=== PATIENT | male | born 1950 | race Two or more races ===

== ENCOUNTER 2022-10-19 08:18 | Outpatient (OUT) | payer MEDICARE, MEDICAID, SELFPAY ==
[2022-10-19 09:02] LABS: Basophils Percent Auto 0.2 % (0.2-2.0); Eosinophils Absolute Auto 0.1 10^3/uL (0.0-0.7); Eosinophils Percent Auto 1.5 % (0.9-7.0); Hematocrit 42.4 % (42.0-54.0); Hemoglobin 14.7 g/dL (14.0-18.0); Immature Granulocytes Abs Auto 0.02 10^3/uL (0.00-0.03); Immature Granulocytes Pct Auto 0.2 % (0.0-0.5); Lymphocytes Absolute Auto 1.8 10^3/uL (1.2-3.8); Lymphocytes Percent Auto 21.5 % (20.5-60.0); Mean Corpuscular HGB Conc 34.7 g/dL (29.9-35.2); Mean Corpuscular Hemoglobin 32.4 pg (25.9-34.0); Mean Corpuscular Volume 93.4 fL (80.0-94.0); Mean Platelet Volume 9.4 fL (9.5-13.5); Monocytes Absolute Auto 0.8 10^3/uL (0.3-0.8); Monocytes Percent Auto 9.2 % (1.7-12.0); Neutrophils Absolute Auto 5.8 10^3/uL (1.4-6.5); Neutrophils Percent Auto 67.4 % (43.0-75.0); Platelet Count 234 10^3/uL (150-450); Red Blood Count 4.54 10^6/uL (4.70-6.10); Red Cell Distribution Width 12.4 % (11.0-15.0); White Blood Count 8.6 10^3/uL (4.0-11.0)
[2022-10-19 10:57] LABS: Alanine Aminotransferase 16 U/L (16-63); Albumin Globulin Ratio 0.9; Albumin Level 3.5 g/dL (3.4-5.0); Alkaline Phosphatase 58 U/L (46-116); Anion Gap 11.1; Aspartate Amino Transferase 8 U/L (15-37); BUN Creatinine Ratio 8.7; Bilirubin Total 0.6 mg/dL (0.2-1.0); Calcium 8.9 mg/dL (8.5-10.1); Carbon Dioxide 28.7 mmol/L (21.0-32.0); Chloride 104 mmol/L (98-107); Chol HDL Ratio 3.3; Cholesterol 201 mg/dL (<=200); Estimated GFR (African America >60 (>=60); Estimated GFR (Non-African Ame >60 (>=60); Globulin 3.7 g/dL; Glucose 137 mg/dL (74-106); HDL Cholesterol 61 mg/dL (40-60); Potassium 3.8 mmol/L (3.5-5.1); Sodium 140 mmol/L (136-145); Total Protein 7.2 g/dL (6.4-8.2); Triglycerides 102 mg/dL (<=150); VLDL CHOLESTEROL 20.4 mg/dL
[2022-10-19 12:19] LABS: Estimated Average Glucose 174 mg/dL; Glycohemoglobin A1C 7.7 % (4.5-6.2)
== END 2022-10-19 08:19 | disposition home or self-care (01) ==
PROVIDERS: PCP Nurse Practitioner Primary Care
DX: E11.9 Type 2 diabetes mellitus without complications (principal)
CPT/HCPCS: 36415; 80053; 80061; 83036; 85025

== ENCOUNTER 2022-11-08 22:43 | Outpatient (REF) | payer MEDICARE, MEDICAID, SELFPAY ==
[2022-11-08 23:03] LABS: Bilirubin Urine NEGATIVE (NEGATIVE); Blood Urine NEGATIVE (NEGATIVE); Clarity Urine CLEAR (CLEAR); Color Urine YELLOW (YELLOW); Glucose Urine UA >=1000 mg/dL (NEGATIVE); Ketones Urine TRACE mg/dL (NEGATIVE); Leukocyte Esterase Urine NEGATIVE (NEGATIVE); Nitrite Urine NEGATIVE (NEGATIVE); Protein Urine NEGATIVE (NEG/TRACE); Specific Gravity Urine 1.025 (1.005-1.025)
[2022-11-08 23:04] LABS: Urine Microscopic Indicated NO
[2022-11-08 23:09] LABS: Creatinine Urine Random 88.06 mg/dL (20.00-300.00); Microalbumin Urine Random <1.3 mg/dL (<=30.0)
== END 2022-11-08 22:44 | disposition home or self-care (01) ==
LOC: LAB 22:43
PROVIDERS: PCP Nurse Practitioner Primary Care; Visit Provider Nurse Practitioner Primary Care
DX: R10.9 Unspecified abdominal pain (principal)
CPT/HCPCS: 81003; 82043; 82570

== ENCOUNTER 2022-11-30 16:42 | Outpatient (OUT) | payer OTHER, MEDICAID, SELFPAY ==
[2022-11-30 18:07] LABS: Prostate Specific Antigen Scrn 2.48 ng/mL (<=4.00)
[2022-12-02 06:18] LABS: HCV Ab Non Reactive (Non Reactive)
[2022-12-02 08:12] LABS: HIV Ab/p24 Ag Screen Non Reactive (Non Reactive)
== END 2022-11-30 16:43 | disposition home or self-care (01) ==
LOC: LAB 16:45
PROVIDERS: PCP Nurse Practitioner Primary Care; Visit Provider Nurse Practitioner Primary Care
DX: Z11.59 Encounter for screening for other viral diseases (principal); Z11.4 Encounter for screening for human immunodeficiency virus [HIV]; Z12.5 Encounter for screening for malignant neoplasm of prostate; Z12.2 Encounter for screening for malignant neoplasm of respiratory organs
CPT/HCPCS: 36415; 86803; 87389; G0103

== ENCOUNTER 2022-12-11 09:22 | Outpatient (OUT) | payer OTHER, SELFPAY ==
--- NOTE | 2022-12-11 | CT_ITS ---
[address] [address] Patient Name: JUVENAL BROWN MRN: [id number] date: 1950 Sex: M Assigned Patient Location: CT Current Patient Location: Accession/Order Number: [id number] Exam Date: 12/11/2022 09:38 Report Date: 12/14/2022 07:14 At the request of: DENISHA KING Procedure: CT lung screening low-dose EXAMINATION: CT lung screening low-dose HISTORY: ENCOUNTER SCREENING FOR MALIGNANT NEOPLASM COMPARISON: No relevant comparison available. TECHNIQUE: Axial, Coronal, and Sagittal images were created without the administration of IV contrast material. Dose reduction techniques were achieved by using automated exposure control and/or adjustment of mA and/or kV according to patient size and/or use of iterative reconstruction technique. FINDINGS: LUNGS: Soft tissue attenuation posterior trachea, retained mucus is favored. A few scattered punctate pulmonary nodules are identified the largest in the left apex measures 3 mm axial image #18. PLEURA: No mass, effusion, or pneumothorax. VASCULATURE: No abnormality. STEPHANI: No mass or pathologic adenopathy. MEDIASTINUM: No mass or pathologic adenopathy. CARDIAC: No enlargement or pericardial effusion. Coronary atherosclerosis. AORTA: No aneurysm or dissection. CHEST WALL: No mass or axillary adenopathy BONES: No bone lesion or fracture. LIMITED ABDOMEN: No suspicious findings. Limited images of the upper abdomen. OTHER: Negative. CT/CT lung screening low-dose IMPRESSION: LUNG SCREENING: Lung-RADS Category 2- Benign Appearance or Behavior. Nodules with a very low likelihood of becoming a clinically active cancer due to size or lack of growth. 2. Continue annual screening with LDCT in 12 months. Electronically authenticated by: BRITT LEVIN Date: 12/14/2022 07:14
== END 2022-12-11 09:23 | disposition home or self-care (01) ==
LOC: CT 09:22
PROVIDERS: PCP Nurse Practitioner Primary Care; Visit Provider Nurse Practitioner Primary Care
DX: Z12.2 Encounter for screening for malignant neoplasm of respiratory organs (principal); R91.8 Other nonspecific abnormal finding of lung field
CPT/HCPCS: 71271

== ENCOUNTER 2023-07-26 13:54 | Outpatient (OUT) | payer OTHER, SELFPAY ==
--- NOTE | 2023-07-26 14:13 | MR_ITS ---
The [address] [address] Patient Name: JUVENAL BROWN MRN: [id number] date: 1950 Sex: M Assigned Patient Location: LAB Current Patient Location: Accession/Order Number: [id number] Exam Date: 07/26/2023 14:40 Report Date: 07/27/2023 09:26 At the request of: TOMY DONALD Procedure: MR head/brain wo/w con MR head/brain wo/w con, 07/26/2023 2:40 PM EDT INDICATION: Asymmetric SNHL H90.3 left-sided tinnitus COMPARISON: There is no appropriate prior study for comparison. TECHNIQUE: Multiplanar, multisequential MRI images of brain were obtained without and with injection of contrast. FINDINGS: This study is limited as the patient aborted early. All the sequences are obtained. The cerebral sulci as well as ventricular system are enlarged consistent with mild ex vacuo cerebral volume loss. There is encephalomalacia within the left temporal lobe likely due to prior trauma or CVA. There is no restricted diffusion. Hyperintensities on T2 and FLAIR images in the constance and wesley radiata and centrum semiovale with sparing of U fibers are nonspecific, statistically most likely consistent with microvascular ischemic changes. There is no intracranial mass, mass effect, midline shift, intra or extra-axial fluid collection or large hemorrhage. No definite abnormality of the cochlea vestibular nerves or semicircular canals is noted. No abnormal enhancing lesion. Normal flow-void in the intracranial vessels is noted. There is a retention cyst within the right maxillary sinus. The visualized portions of orbits, mastoid air cells as well as remainder of paranasal sinuses are unremarkable. MR/MR head/brain wo/w con IMPRESSION: Limited study as the patient aborted early. No acute intracranial process is noted. No definite radiological finding to explain patient's symptoms. Electronically authenticated by: DIANE BLOUNT Date: 07/27/2023 09:26
[2023-07-26 14:18] LABS: Estimated GFR (African America >60 (>=60); Estimated GFR (Non-African Ame >60 (>=60)
--- NOTE | 2023-07-26 16:02 | PC.NURSE ---
07/26/23 1520 Called to MRI with c/o pt feeling dizzy after getting IV Dotarem. Pt asssisted with transfer to w/c. Pt breasthing easy and nonlabored. Pt has broken Kazakh and taken to holding area for son to translate. Son states that the patient was dizzy in the MRI after IV contrast but it has subsided now. BP 127/59 P 75 pulse ox 97% RA. Pt skin pink warm and dry. Pt denies feeling dizzy at all now and feels good to go home. discussed with pt and son the small chance that this could be a weird reaction to MRI contrast but, not an allergic reaction.
== END 2023-07-26 13:55 | disposition home or self-care (01) ==
LOC: LAB 13:55
PROVIDERS: PCP Nurse Practitioner Primary Care; Visit Provider Otolaryngology
DX: H93.12 Tinnitus, left ear (principal); H92.02 Otalgia, left ear; H90.3 Sensorineural hearing loss, bilateral
CPT/HCPCS: 36415; 70553; 82565; A9575

== ENCOUNTER 2023-08-09 15:24 | Outpatient (OUT) | payer OTHER, SELFPAY ==
[2023-08-09 15:45] LABS: Hematocrit 39.6 % (42.0-54.0); Hemoglobin 13.3 g/dL (14.0-18.0); Mean Corpuscular HGB Conc 33.6 g/dL (29.9-35.2); Mean Corpuscular Hemoglobin 31.9 pg (25.9-34.0); Mean Platelet Volume 8.9 fL (9.5-13.5); Platelet Count 237 10^3/uL (150-450); Red Blood Count 4.17 10^6/uL (4.70-6.10); Red Cell Distribution Width 12.6 % (11.0-15.0); White Blood Count 6.8 10^3/uL (4.0-11.0)
[2023-08-09 15:48] LABS: Estimated Average Glucose 160 mg/dL; Glycohemoglobin A1C 7.2 % (4.5-6.2)
[2023-08-09 15:59] LABS: Alanine Aminotransferase 28 U/L (16-63); Albumin Globulin Ratio 1.1; Albumin Level 3.7 g/dL (3.4-5.0); Alkaline Phosphatase 58 U/L (46-116); Anion Gap 10.9; Aspartate Amino Transferase 12 U/L (15-37); BUN Creatinine Ratio 11.9; Bilirubin Total 0.3 mg/dL (0.2-1.0); Calcium 9.6 mg/dL (8.5-10.1); Carbon Dioxide 29.1 mmol/L (21.0-32.0); Chloride 101 mmol/L (98-107); Estimated GFR (African America >60 (>=60); Estimated GFR (Non-African Ame >60 (>=60); Globulin 3.5 g/dL; Glucose 211 mg/dL (74-106); Sodium 137 mmol/L (136-145); Total Protein 7.2 g/dL (6.4-8.2)
== END 2023-08-09 15:25 | disposition home or self-care (01) ==
LOC: LAB 15:25
PROVIDERS: PCP Nurse Practitioner; Visit Provider Nurse Practitioner
DX: R35.0 Frequency of micturition (principal); E11.9 Type 2 diabetes mellitus without complications
CPT/HCPCS: 36415; 80053; 83036; 85027

== ENCOUNTER 2024-09-20 22:39 | Emergency (ER) | payer OTHER, SELFPAY ==
--- OUTSIDE RECORDS SUMMARY | 2024-09-20 22:52 | XMS_ITS | CCD ---
Author Organization [facility] Care Team Providers Care Plant Tender Name Role Phone MARIELOS PENA Attending Unavailable MISC, DR CLANCY Consulting Unavailable MISC, DR CLANCY Attending Unavailable MISC, DR CLANCY Admitting Unavailable REQUEST, NONE LISTED Consulting Unavaila ble REQUEST, NONE LISTED Attending Unavaila ble REQUEST, NONE LISTED Admitting Unavaila ble FELICITA SHOOK Primary Care Physician [phone] CONNOR INIGUEZ Attending Unavailable DENISHA KING Referring Unavailable TIMMISTOMY Attending Unavailable DENISHA KING Referring Unavailable Medications Current Medications Medication Drug Class(es) Dates Sig (Normalized) Sig (Original) finasteride 5 mg oral tablet (1 source) 5-alpha Reductase Inhibitor Start: 06-03-2021 take 1 tablet by mouth once daily finasteride 5 mg Tab 5 mg = 1 tab(s), Oral, Daily, # 30 tab(s), Refills(s) 11, Pharmacy: [facility]/pharmacy #[id number], 174, cm, 06/03/21 11:09:00 EST, Height/Length Dosing, 67.9, kg, 06/03/21 11:09:00 EST, Weight Dosing Start Date: 06/03/21 Status: Ordered hydrOXYzine hydrochloride 50 mg oral tablet (1 source) Antihistamine Start: 06-03-2021 take 1 mg by mouth four times daily hydrOXYzine hydrochloride 50 mg oral tablet mg tab(s), Oral, QID, Refills(s) 0 Start Date: 06/03/21 Status: Ordered lisinopril 2.5 mg oral tablet (1 source) Angiotensin Converting Enzyme Inhibitor Start: 06-03-2021 take 1 mg by mouth once daily lisinopril 2.5 mg Tab mg tab(s), Oral, Daily, Refills(s) 0 Start Date: 06/03/21 Status: Ordered metFORMIN hydrochloride 1000 mg oral tablet (1 source) Biguanide Start: 06-03-2021 take 1 mg by mouth twice daily metformin 1000 mg oral tablet mg tab(s), Oral, BID, Refills(s) 0 Start Date: 06/03/21 Status: Ordered pravastatin sodium 20 mg oral tablet (1 source) HMG-CoA Reductase Inhibitor Start: 06-03-2021 take 1 mg by mouth once daily pravastatin 20 mg Tab mg tab(s), Oral, Daily, Refills(s) 0 Start Date: 06/03/21 Status: Ordered tamsulosin hydrochloride 0.4 mg oral capsule (1 source) alpha-Adrenergic Dorian Start: 06-03-2021 take 1 capsule by mouth twice daily tamsulosin 0.4 mg Cap 0.4 mg = 1 cap(s), Oral, BID, # 60 cap(s), Refills(s) 11, Pharmacy: [facility]/pharmacy #[id number], 174, cm, 06/03/21 11:09:00 EST, Height/Length Dosing, 67.9, kg, 06/03/21 11:09:00 EST, Weight Dosing Start Date: 06/03/21 Status: Ordered traZODone hydrochloride 50 mg oral tablet (1 source) Serotonin Reuptake Inhibitor Start: 06-03-2021 take 1 mg by mouth twice daily traZODONE 50 mg Tab mg tab(s), Oral, BID, Refills(s) 0 Start Date: 06/03/21 Status: Ordered Problems Problem Classification Problem Date Documented Date Episodic/Chronic Acute cerebrovascular disease (1 source) Cerebrovascular accident 06-03-2021 Chronic Diabetes mellitus without complication (1 source) Type 2 diabetes mellitus without complications; Translations: [TYPE 2 DM WITHOUT COMPLICATIONS] Onset: 05-11-2021 Chronic Disorders of lipid metabolism (4 sources) Hyperlipidemia, unspecified; Translations: [HYPERLIPIDEMIA UNSPECIFIED] Onset: 05-07-2021 Chronic Essential hypertension (2 sources) Essential (primary) hypertension; Translations: [Hypertensive disorder] Onset: 05-11-2021 06-03-2021 Chronic Genitourinary symptoms and ill-defined conditions (2 sources) Urge incontinence of urine; Translations: [Urinary incontinence] 06-03-2021 Chronic Genitourinary symptoms and ill-defined conditions (1 source) Incomplete emptying of bladder 06-03-2021 Episodic Hyperplasia of prostate (2 sources) Benign prostatic hyperplasia without lower urinary tract symptoms; Translations: [Benign prostatic hypertrophy with outflow obstruction] Onset: 05-11-2021 06-03-2021 Chronic Results Test Name Value Interpretation Reference Range Facility Provider Letteron 12-02-2021 Provider Letter (Inserted Image. Katja ble to display) December 02, 2021 DEACON MARCIAL [address] [place] [id number] DEACON MARCIAL 1950 Dear Deacon , You missed your scheduled appointment on: December 02, 2021 and the purpose of this letter is to inform you of our *No Show Policy*. Our appointment slots fill rapidly and when we have a no show appointment that time is lost. We could have used that time slot to care for a patient who needed to see one of our providers. Therefore, we ask that you call 24 hours in advance to cancel your appointment. This policy is in place so that we can meet the needs of all of our patients and we do appreciate your understanding. Sincerely, [facility] [address], [place] [address] [facility] Ambulatory Visit Summaryon 0 06-03-2021 Ambulatory Visit Summary DEACON MARCIAL :1950 Visit Date:06/03/2021 Ambulatory Visit Instructions Your Diagnosis BPH with urinary obstruction Incomplete bladder emptying Urge incontinence Other obstructive and reflux uropathy Tests Performed Urnls Dip Stick Auto w/o Microscopy POC 52556 Your Care Team Attending Physician - RITU GREER PA-C Primary Care Physician - FELICITA SHOOK DO Referring Physician - FELICITA SHOOK DO This Is Your Medications List finasteride (finasteride 5 mg Tab) tamsulosin (tamsulosin 0.4 mg Cap) Contact prescribing physician if questions or concerns hydrOXYzine (hydrOXYzine hydrochloride 50 mg oral tablet) lisinopril (lisinopril 2.5 mg Tab) metformin (metformin 1000 mg oral tablet) pravastatin (pravastatin 20 mg Tab) trazodone (traZODONE 50 mg Tab) Discharge Vitals Heart Rate (Peripheral) 74 Respiratory Rate 16 Blood Pressure 122/70 Height 174.0 cm Height 174 cm Weight 67.9 kg Weight 67.9 kg BMI 22.43 What to do next Scheduled Follow-Up Appointments Tuesday 3:00 PM EDT With: PERCY LOPEZ, RITU Parada Where: [facility] Formson 06-03-2021 Forms [id number]: 127 [facility] Patient Educationon 06-03-19 Patient Education Urology Benign Prostatic Hyperplasia Benign prostatic hyperplasia (BPH) is an enlarged prostate gland that is caused by the normal aging process and not by cancer. The prostate is a walnut-sized gland that is involved in the production of semen. It is located in front of the rectum and below the bladder. The bladder stores urine and the urethra is the tube that carries the urine out of the body. The prostate may get bigger as a man gets older. An enlarged prostate can press on the urethra. This can make it harder to pass urine. The build-up of urine in the bladder can cause infection. Back pressure and infection may progress to bladder damage and kidney (renal) failure. What are the causes? This condition is part of a normal aging process. However, not all men develop problems from this condition. If the prostate enlarges away from the urethra, urine flow will not be blocked. If it enlarges toward the urethra and compresses it, there will be problems passing urine. What increases the risk? This condition is more likely to develop in men over the age of 50 years. What are the signs or symptoms? Symptoms of this condition include: ? Getting up often during the night to urinate. ? Needing to urinate frequently during the day. ? Difficulty starting urine flow. ? Decrease in size and strength of your urine stream. ? Leaking (dribbling) after urinating. ? Inability to pass urine. This needs immediate treatment. ? Inability to completely empty your bladder. ? Pain when you pass urine. This is more common if there is also an infection. ? Urinary tract infection (UTI). How is this diagnosed? This condition is diagnosed based on your medical history, a physical exam, and your symptoms. Tests will also be done, such as: ? A post-void bladder scan. This measures any amount of urine that may remain in your bladder after you finish urinating. ? A digital rectal exam. In a rectal exam, your health care provider checks your prostate by putting a lubricated, gloved finger into your rectum to feel the back of your prostate gland. This exam detects the size of your gland and any abnormal lumps or growths. ? An exam of your urine (urinalysis). ? A prostate specific antigen (PSA) screening. This is a blood test used to screen for prostate cancer. ? An ultrasound. This test uses sound waves to electronically produce a picture of your prostate gland. Your health care provider may refer you to a specialist in kidney and prostate diseases (urologist). How is this treated? Once symptoms begin, your health care provider will monitor your condition (active surveillance or watchful waiting). Treatment for this condition will depend on the severity of your condition. Treatment may include: ? Observation and yearly exams. This may be the only treatment needed if your condition and symptoms are mild. ? Medicines to relieve your symptoms, including: ? Medicines to shrink the prostate. ? Medicines to relax the muscle of the prostate. ? Surgery in severe cases. Surgery may include: ? Prostatectomy. In this procedure, the prostate tissue is removed completely through an open incision or with a laparoscope or robotics. ? Transurethral resection of the prostate (TURP). In this procedure, a tool is inserted through the opening at the tip of the penis (urethra). It is used to cut away tissue of the inner core of the prostate. The pieces are removed through the same opening of the penis. This removes the blockage. ? Transurethral incision (TUIP). In this procedure, small cuts are made in the prostate. This lessens the prostate's pressure on the urethra. ? Transurethral microwave thermotherapy (TUMT). This procedure uses microwaves to create heat. The heat destroys and removes a small amount of prostate tissue. ? Transurethral needle ablation (TUNA). This procedure uses radio frequencies to destroy and remove a small amount of prostate tissue. ? Interstitial laser coagulation (ILC). This procedure uses a laser to destroy and remove a small amount of prostate tissue. ? Transurethral electrovaporization (TUVP). This procedure uses electrodes to destroy and remove a small amount of prostate tissue. ? Prostatic urethral lift. This procedure inserts an implant to push the lobes of the prostate away from the urethra. Follow these instructions at home: ? Take [id number] and prescription medicines only as told by your health care provider. ? Monitor your symptoms for any changes. Contact your health care provider with any changes. ? Avoid drinking large amounts of liquid before going to bed or out in public. ? Avoid or reduce how much caffeine or alcohol you drink. ? Give yourself time when you urinate. ? Keep all follow-up visits as told by your health care provider. This is important. Contact a health care provider if: ? You have unexplained back pain. ? Your symptoms do not get better with treatment. ? You d (more content not included)... Normal [facility] Urology Office/Clinic Noteon 06-03-2021 Urology Office/Clinic Note Chief Complaint referred for urinary incontience. HPI Staff Deacon is a 71 year old male here today referred for urinary incontinence. Granddaughter in the room also his plant control aide her name is Brenda . Pt states when he leans his head down he gets pain/cramping in his upper arms. PVR was 200ml. Dysuria: _Denies Incomplete bladder emptying: _Yes Hematuria: _Denies visible blood Frequency: _Every 2 hours Urgency: _Denies Nocturia: _3 times a night due to the urge Stream: _steady stream Leaking: _Denies Post void dripping: _Denies Wearing pads/ Depends: _Yes just incase but it never gets wet. Urge incontinence: _Denies Stress incontinence: _Denies Incontinence without Sensory Awareness: _Denies Abdominal pain: _Denies Flank pain: _Denies Sexual complaints: _ History of Present Illness Pt is here for Referral by Dr. Felicita Shook due to BPH Pt is having Mild Urinary sx: Nocturia, Urge Incontinence and Incomplete Bladder Emptying Review of Systems PHQ Score Initial Depression Screen Score: 0 ROS - Provider no fever, chills, malaise, myalgia. no rash/lesions. no chest pain, palpitations, or SOB. no abdominal pain, nausea, vomiting. no unilateral calf swelling, redness, pain Physical Exam Vitals & Measurements HR: 74(Peripheral) RR: 16 BP: 122/70 HT: 174.0 cm HT: 174 cm WT: 67.9 kg WT: 67.9 kg BMI: 22.43 General: nontoxic, NAD Mouth: moist mucosa Lungs: normal respiratory effort Cardio: regular rate, good distal perfusion Abdomen: nondistended, no suprapubic distention or tenderness, no CVA tenderness Neurologic: Grossly normal Skin: No rashes or suspicious lesions Assessment/Plan 1. BPH with urinary obstruction (N40.1: Benign prostatic hyperplasia with lower urinary tract symptoms) Pt currently in taking Tamsulosin 0.4mg qd Pt states that since starting Tamsulosin about a year ago that some of his symptoms have improved Pt advised that there are options for some additional improvements: increasing Tamsulosin to BID, adding an additional prostate medication or minimally invasive procedure on prostate. Pt prefers to maximize medical therapy before discussing any procedures. Will add Finasteride 5mg qd and increase Tamsulosin 0.4mg to BID. 2. Incomplete bladder emptying (R33.9: Retention of urine, unspecified) Pt's PVR today in office is 200cc. I believe the meds will help improve this. will monitor. 3. Urge incontinence (N39.41: Urge incontinence) Mild, ongoing Pt wear a pad for protection but it is never wet. f/u 6 mos. if not satisfied with max medical therapy and/or PVR remains elevated then we will discuss cysto and rezum vs urolift vs TURP. Follow-up With When Contact Information RITU GREER PA-C, LOUIE In 6 months 12/01/2021 EDT [address] [place] [address] Additional Instructions: Patient Education Benign Prostatic Hyperplasia China Montiel, personally scribed for Ritu Greer PA-C on 06/03/2021 11:42:57. . Documentation recorded by the scribson Whitt accurately reflects the services(s) I performed and decisions made by me. Authenticated by Ritu Greer PA-C on 06/03/2021 12:09:59. Problem List/Past Medical History Ongoing BPH with urinary obstruction High blood pressure Incomplete bladder emptying Stroke Urge incontinence Urinary incontinence Historical No qualifying data Medications hydrOXYzine hydrochloride 50 mg oral tablet, Oral, QID lisinopril 2.5 mg Tab, Oral, Daily metformin 1000 mg oral tablet, Oral, BID pravastatin 20 mg Tab, Oral, Daily tamsulosin 0.4 mg Cap, Oral, Daily traZODONE 50 mg Tab, Oral, BID Allergies No Known Medication Allergies Social History Tobacco 4 or less cigarettes(less than 1/4 pack)/day in last 30 days Tobacco Use:. Never Smokeless Tobacco Use:. Cigarettes, 06/03/2021 Family History Alcoholism: Uncle. Drug addiction: Uncle. High blood pressure: Father. Psychiatric disorder: Aunt. Immunizations Vaccine Date Status SARS-CoV-2 (COVID-19) Ad26 vaccine 03/23/2021 Recorded SARS-CoV-2 (COVID-19) Ad26 vaccine 07/15/2020 Recorded SARS-CoV-2 (COVID-19) Ad26 vaccine 06/23/2020 Recorded Lab Results Ambulatory Point of Care Results Bilirubin Urine Dipstick: Negative (06/03/21 10:55:00) Blood Urine Dipstick: Negative (06/03/21 10:55:00) Glucose Urine Dipstick: 1+ 250 mg/dl (06/03/21 10:55:00) Ketones Urine Dipstick: 1+ 15 mg/dl (06/03/21 10:55:00) Leukocytes Urine Dipstick: Negative (06/03/21 10:55:00) Nitrite Urine Dipstick: Negative (06/03/21 10:55:00) Protein Urine Dipstick: Negative (06/03/21 10:55:00) Specific [place] Urine Dipstick: 1.020 (06/03/21 10:55:00) Urine Appearance Urine Dipstick: Clear (06/03/21 10:55:00) Urine Color Urine Dipstick: Yellow (06/03/21 10:55:00) Urobilinogen Urine Dipstick: Normal 0.2-1 EU/dl (06/03/21 10:55:00) pH Urine Dipstick: 6.5 (06/03/21 1 (more content not included)... Normal [facility] Comment on above: Result Comment: Elec tronically Signed By: RITU GREER PA-C\.br\Date and Time Signed: 06/03/21 12:10 EST\.br\Electronically Co-Signed By: China Whitt\.br\Date and Time Co-Signed: 06/03/21 11:43 EST GLYCOHEMOGLOBIN A1Con 2021 ADA RECOMMENDATION ADA THERAPEUTIC TARG ET 6.0 - 7.0 ACTION SUGGESTED > 7.0 Normal [facility] Comment on above: Performed By: #### A 1C #### [facility] [address] [place] [address] Dr. Yulisa Chappell Glucose [Mass/Vol] 157 mg/dL Normal [facility] Comment on above: Performed By: #### A 1C #### [facility] [address] [place] [address] Dr. Yulisa Chappell HbA1c (Bld) [Mass fraction] 7.1 % Critically high <=6.0 [facility] Comment on above: Performed By: #### A 1C #### [facility] [address] [place] [address] Dr. Yulisa Chappell LIPID PROFILEon 05-07-2021 CHOL-HDL RATIO NORM SEE BELOW Normal [facility] Comment on above: Result Comment: 3.3 - 4.4 LOW RISK 4.4 - 7.1 AVERAGE RISK 7.1 - 11.0 MODERATE RISK >11.0 HIGH RISK Performed By: #### C MP, LIPID #### [facility] [address] [address] [address] Yulisa Chappell Cholesterol [Mass/Vol] 150 mg/dL Normal <=200 [facility] Comment on above: Performed By: #### C MP, LIPID #### [facility] [address] [address] [address] Yulisa Chappell Cholesterol in HDL [Mass/Vol] 59 mg/dL Normal [facility] Comment on above: Performed By: #### C MP, LIPID #### [facility] [address] [address] [address] Yulisa Chappell Cholesterol in LDL [Mass/Vol] 75.0 mg/dL Normal [facility] Comment on above: Performed By: #### C MP, LIPID #### [facility] [address] [address] [address] Yulisa Chappell Cholesterol.total/Ch olesterol in HDL [Mass ratio] 2.5 {ratio} Normal [facility] Comment on above: Performed By: #### C MP, LIPID #### [facility] [address] [address] [address] Yulisa Chappell HDL NORMAL > or = 60 mg/dl - LO W CARDIOVASCULAR RISK <40 mg/dl - HIGH CARDIOVASCULAR RISK Normal [facility] Comment on above: Performed By: #### C MP, LIPID #### [facility] [address] [place] [address] Dr. Yulisa Chappell LDL CALC NORMAL SEE BELOW Normal [facility] Comment on above: Result Comment: <100 mg/dl OPTIMAL 100 - 129 mg/dl NEAR OR ABOVE OPTIMAL 130 - 159 mg/dl BORDERLINE HIGH 160 - 189 mg/dl HIGH >190 mg/dl VERY HIGH Performed By: #### C MP, LIPID #### [facility] [address] [address] [address] Yulisa Chappell Triglyceride [Mass/Vol] 80 mg/dL Normal <=150 [facility] Comment on above: Performed By: #### C MP, LIPID #### [facility] [address] [place] [address] Dr. Yulisa Chappell VLDL CALC 16.0 mg/dL Normal [facility] Comment on above: Performed By: #### C MP, LIPID #### [facility] [address] [address] [address] Yulisa Chappell PROF 14(COMP METB)on 022 Albumin [Mass/Vol] 3.5 g/dL Normal 3.5-5.0 [facility] Comment on above: Performed By: #### C MP, LIPID #### [facility] [address] [place] [address] Dr. Yulisa Chappell Albumin/Globulin [Mass ratio] 1.1 {ratio} Normal [facility] Comment on above: Performed By: #### C MP, LIPID #### [facility] [address] [address] [address] Yulisa Chappell ALP [Catalytic activity/Vol] 56 U/L Normal 38-126 [facility] Comment on above: Performed By: #### C MP, LIPID #### [facility] [address] [address] [address] Yulisa Chappell ALT [Catalytic activity/Vol] 18 U/L Critically low 21-72 [facility] Comment on above: Performed By: #### C MP, LIPID #### [facility] [address] [address] [address] Yulisa Chappell Anion gap [Moles/Vol] 10.2 mmol/L Normal [facility] Comment on above: Performed By: #### C MP, LIPID #### [facility] [address] [address] [address] Yulisa Chappell AST [Catalytic activity/Vol] 12 U/L Critically low 17-59 [facility] Comment on above: Performed By: #### C MP, LIPID #### [facility] [address] [address] [address] Yulisa Chappell Bilirubin [Mass/Vol] 0.4 mg/dL Normal 0.2-1.3 [facility] Comment on above: Performed By: #### C MP, LIPID #### [facility] [address] [address] [address] Yulisa Chappell Calcium [Mass/Vol] 9.0 mg/dL Normal 8.4-10.2 [facility] Comment on above: Performed By: #### C MP, LIPID #### [facility] [address] [address] [address] Yulisa Chappell Chloride [Moles/Vol] 103 mmol/L Normal 98-107 [facility] Comment on above: Performed By: #### C MP, LIPID #### [facility] [address] [address] [address] Yulisa Chappell CO2 [Moles/Vol] 30.0 mmol/L Normal 22.0-30.0 [facility] Comment on above: Performed By: #### C MP, LIPID #### [facility] [address] [address] [address] Yulisa Chappell Creatinine [Mass/Vol] 0.68 mg/dL Normal 0.66-1.25 [facility] Comment on above: Performed By: #### C MP, LIPID #### [facility] [address] [address] [address] Yulisa Chappell EGFR-AF HUNGARIAN >60 Normal >=60 [facility] Comment on above: Performed By: #### C MP, LIPID #### [facility] [address] [address] [address] Yulisa Chappell EGFR-NON AF HUNGARIAN >60 Normal >=60 [facility] Comment on above: Performed By: #### C MP, LIPID #### [facility] [address] [place] [address] Dr. Yulisa Chappell Globulin (S) [Mass/Vol] 3.3 g/dL Normal [facility] Comment on above: Performed By: #### C MP, LIPID #### [facility] [address] [address] [address] Yulisa Chappell Glucose [Mass/Vol] 87 mg/dL Normal 74-106 [facility] Comment on above: Performed By: #### C MP, LIPID #### [facility] [address] [address] [address] Yulisa Chappell Potassium [Moles/Vol] 4.2 mmol/L Normal 3.4-5.0 [facility] Comment on above: Performed By: #### C MP, LIPID #### [facility] [address] [address] [address] Yulisa Chappell Protein [Mass/Vol] 6.8 g/dL Normal 6.1-8.2 [facility] Comment on above: Performed By: #### C MP, LIPID #### [facility] [address] [address] [address] Yulisa Chappell Sodium [Moles/Vol] 139 mmol/L Normal 137-145 [facility] Comment on above: Performed By: #### C MP, LIPID #### [facility] [address] [place], [place] [address] Dr. Yulisa Chappell Urea nitrogen [Mass/Vol] 10.0 mg/dL Normal 9.0-20.0 [facility] Comment on above: Performed By: #### C MP, LIPID #### [facility] [address] [address] [address] Yulisa Chappell Urea nitrogen/Creatinine [Mass ratio] 14.7 mg/mg Normal [facility] Comment on above: Performed By: #### C MP, LIPID #### [facility] [address] [address] [address] Yulisa Chappell Encounters Encounter Date Encounter Type Care Provider Facility Start: 07-12-2023 End: 07-12-2023 ambulatory TOMY COLLINSVicki Not Available Start: 06-11-2023 End: 06-11-2023 ambulatory CONNOR INIGUEZ Not Available Start: 12-02-2021 End: 12-02-2021 Patient encounter procedure RITU GREER [facility] Start: 05-07-2021 End: 05-08-[address] DOCTOR MONTANEZ Facility: Start: 06-23-2020 End: 06-24-[address] PEREIRA LISTED REQUEST Facility: Start: 09-09-2018 End: 09-09-2018 Emergency department patient visit MARIELOS PENA [facility] Procedures Date Procedure Procedure Detail Performing Clinician Start: 05-07-[address] DOCTOR MONTANEZ Comment on above: Performed By: #### P SAD #### [facility] [address] [address] [address] Yulisa Chappell Start: 09-09-2018 Ecg routine ecg w/le ast 12 lds w/i&r MARIELOS PENA Immunizations Immunization Date Immunization Notes Care Provider Fa cility 03-23-2021 SARS-CoV-2 (COVID-19 ) Ad26 vaccine, recombinant RITU GREER [facility] 07-15-2020 SARS-CoV-2 (COVID-19 ) Ad26 vaccine, recombinant RITU GREER [facility] 06-23-2020 SARS-CoV-2 (COVID-19 ) Ad26 vaccine, recombinant RITU GREER [facility] Payers Date Payer Category Payer Unknown [id number] 2017 Unknown [id number] 1957 Medicaid [id number] 1957 Self-pay 1950 Unknown [id number] 1950 Unknown [id number] 2.16.84 [id number] 1950 Unknown [id number] 2.16.84 [id number] Unknown [id number] 2.16.84 [id number] Social History Date Type Detail Facility Start: 06-03-2021 Tobacco smoking status Light t obacco smoker (finding) [facility] Tobacco smoking status Never [facility] Sex Assigned At Male [facility] Evaluation + Plan note Note Date & Type Note Facility Evaluation + Plan note No data available for this section [facility] Hospital Discharge instructions Note Date & Type Note Facility Hospital Discharge instructions No data available for this section [facility] Progress note Note Date & Type Note Facility Progress note No data available for this section [facility] Summary Purpose Family History No Family History Records FoundNo Family History Records FoundNo Family History Records FoundNo Family History Records Found Advance Directives No Advanced Directives Records FoundNo Advanced Directives Records FoundNo Advanced Directives Records FoundNo Advanced Directives Records Found Additional Source Comments (unrecognized sect ion and content) No Status Records FoundNo Status Records FoundNo Status Records FoundNo Status Records Found INFORMATION SOURCE (unrecogn ized section and content) DATE CREATED AUTHOR 09/13/2018 [facility] DATE CREATED AUTHOR AUTHOR'S ORGANIZ ATION 05/12/2021 [facility] DATE CREATED AUTHOR AUTHOR'S ORGANIZ ATION 12/04/2021 [place] [facility] DATE CREATED AUTHOR AUTHOR'S ORGANIZ ATION 07/13/2023 [facility] EPIC Care Team (unrecognized sect ion and content) Personnel Name: FELICITA SHOOK DO Address: [address] [place] [address] FAX# [phone] [place], [place] [address] FOR RECORDS PERTAINING TO PATIENTS WHO ARE OR HAVE BEEN ENROLLED IN A CHEMICAL DEPENDENCY/SUBSTANCEABUSE PROGRAM, SOME INFORMATION MAY BE OMITTED. This clinical summary was aggregated from multiple sources. Caution should be exercised in using it in the provision of clinical care. This summary normalizes information from multiple sources, and as a consequence, information in this document may materially change the coding, format and clinical context of patient data. In addition, data may be omitted in some cases. CLINICAL DECISIONS SHOULD BE BASED ON THE PRIMARY CLINICAL RECORDS. [facility] provides no warranty or guarantee of the accuracy or completeness of information in this document.
[2024-09-20 23:08] VITALS: BP 131/72; PULSE 70; TEMP 36.7; O2SAT 100; BMI 24.1
[2024-09-20] MEDS: NEOMYCIN/POLYMYXIN B/HYDROCORTISONE OTIC SOLUTION 200 DROP/10 ML BOTTLE OT (23:45)
--- NOTE | 2024-09-21 01:23 | ED.EAR1 ---
HPI - Ear Problem General Chief complaint: Ear Stated complaint: HEARING A LOUD NOISE IN HIS EARS Time Seen by Provider: 09/20/24 22:52 Source: patient and family Limitations: language barrier Limitations comment: daughter translates--Swedish speaking History of Present Illness HPI Narrative: This 74-year-old male who has had several strokes in the past and a history of tinnitus who has been seen in the past by ENT for this and had an MRI on 07/26/2023 that did not show any acute findings presents for evaluation of ringing in both ears. The patient's daughter states that he asked to be brought to the emergency department for treatment of the ringing in his ears. He denies any ear pain. He is being seen by a local ENT for hearing aids but has been told that he needs to have hearing implants. The patient states this is because he is a diabetic. He has not had any change in his neurologic status including any slurred speech, confusion, weakness or numbness. He has not had any drainage from his ears. He has not had a fever. He has no neck pain or stiffness. Related Data Home Medications ?Medication ?Instructions ?Recorded ?Confirmed lisinopril 2.5 mg tablet mg 09/20/24 metformin 1,000 mg tablet mg 09/20/24 Allergies Allergy/AdvReac Type Severity Reaction Status Date / Time No Known Drug Allergies Allergy Verified 09/20/24 23:16 Review of Systems ROS Status of ROS 10 or more systems reviewed and unremarkable except as noted in history and below PFSH PFSH Social History Little interest or pleasure in doing things: not at all Feeling down, depressed, or hopeless: not at all Exam Narrative Exam Narrative: Vital signs and Nursing Notes reviewed: Patient is afebrile with a normal pulse, normal blood pressure, he is not hypoxic with pulse ox of 100% on room air General: Awake, alert, oriented, elderly male, he is well-appearing and conversant, no distress noted HEENT: Normocephalic atraumatic, mucous membranes are moist and pink, eyes are clear, normal conjunctiva, vision is grossly intact, posterior pharynx is normal in appearance. Tympanic membranes are normal bilaterally without effusion, erythema, cerumen or other notable abnormality. Patient is very hard of hearing. Neck: Supple, no meningeal signs, no anterior or posterior cervical lymphadenopathy Chest: Lungs are clear to auscultation with good air entry, there is no wheezing rhonchi or rales appreciated no accessory muscle use, patient is speaking in complete sentences-no chest wall tenderness to palpation CVS: Regular rate and rhythm S1-S2, no murmurs rubs or gallops, pulses are brisk and equal bilaterally ABD: Soft, nondistended, nontender, no rebound guarding or rigidity, bowel sounds are normal, no pulsatile masses appreciated Extremities: Moving all extremities, no lower extremity tenderness or swelling noted Skin: Normal in appearance without rash,pallor, petechiae or purpura Neuro: No focal deficits; speech is clear, police justice strength is intact, there is no facial droop, upper and lower extremity strength and sensation is intact. Constitutional Vital Signs, click to edit/add: Last Vital Signs Temp 98.1 F 09/20/24 23:08 Pulse 70 09/20/24 23:08 Resp 14 09/20/24 23:08 BP 131/72 09/20/24 23:08 Pulse Ox 100 09/20/24 23:08 O2 Del Method Room Air 09/20/24 23:08 Course Vital Signs Vital signs: Vital Signs Temperature 98.1 F 09/20/24 23:08 Pulse Rate 70 09/20/24 23:08 Respiratory Rate 14 09/20/24 23:08 Blood Pressure 131/72 09/20/24 23:08 Pulse Oximetry 100 09/20/24 23:08 Oxygen Delivery Method Room Air 09/20/24 23:08 Temperature 98.1 F 09/20/24 23:08 Pulse Rate 70 09/20/24 23:08 Respiratory Rate 14 09/20/24 23:08 Blood Pressure 131/72 09/20/24 23:08 Pulse Oximetry 100 09/20/24 23:08 Oxygen Delivery Method Room Air 09/20/24 23:08 Medical Decision Making MDM Narrative Medical decision making narrative: This 74-year-old male is brought to the emergency department by his daughter for evaluation of tinnitus. This is an ongoing and remitting problem for him. He has been seen in the past by Dr. Lock and had an MRI dated 07/26/2023 that did not show any acute intracranial process however the limited study was limited by the patient ending of the exam before its completion. He has not had any drainage from his ears. He does not have any ear pain or nasal congestion. There are no foreign bodies or cerumen in the ear canals. I do not appreciate any effusions or other notable abnormality. The patient is markedly hard of hearing and is being evaluated by an interactive developer. The patient's daughter states the interactive developer has told them that he requires implants because he is diabetic. The patient presents with tinnitus. I explained to the patient's daughter that I do not have any specific treatment for this. She verbalizes understanding of that. I offered to provide the patient with some eardrops that may give him some relief or ease his anxiety about the tinnitus. She is in agreement with this plan. They will follow-up with their family doctor for further evaluation and treatment. Discharge Plan Discharge Chief Complaint: Ear Clinical Impression: Bilateral tinnitus Patient Disposition: Home, Self-Care Time of Disposition Decision: 23:33 Condition: Good Prescriptions / Home Meds: No Action metformin 1,000 mg tablet lisinopril 2.5 mg tablet Print Language: Swedish Instructions: Tinnitus (ED) Referrals: Vidhya Avery MD [Physician, Ear, Nose, Throat] - 1 week Alejandra Oropeza NP [Physician] - 1 week Discharge Date/Time: 09/20/24 23:51
== END 2024-09-20 23:51 | disposition home or self-care (01) ==
PROVIDERS: Emergency Provider Emergency Medicine
DX: H93.13 Tinnitus, bilateral (principal); Z86.73 Personal history of transient ischemic attack (TIA), and cerebral infarction without residual deficits; E11.9 Type 2 diabetes mellitus without complications; Z79.84 Long term (current) use of oral hypoglycemic drugs
CPT/HCPCS: 99282

== ENCOUNTER 2024-11-16 08:34 | Outpatient (OUT) | payer OTHER, SELFPAY ==
--- OUTSIDE RECORDS SUMMARY | 2024-11-05 04:30 | XMS_ITS ---
Author Organization [facility] Address [address] [place], [place] [id number] Care Team Providers Care Circuit Rider Name Role Phone Flavio Chen Unavailable [phone] REASON FOR VISIT DM/HTN Social History Sex Assigned At : Social History Observation Description Sex Assigned At Male Encounters Encounter Location Date Provider Diagnosis Third [address] [facility] [place] [address] [place] [address] 11/05/2024 Chen Muniz Plan Of Treatment Next Appt Details Provider Name:Abel Leigh, 02/15/2025 09:30:00 AM, [address], [place], [id number], Progress Notes * STEPHANIA BROWN CDOB:11/1950 (74 yo M)Acc No.[id number]:11/05/2024 Medical Note Patient: Ricky BANGURA Bernard BROWN Provider: Fely Muniz MD :1950 A ge:74 Y S ex:Male Date:11/05/2024 Address:[address] [place] [id number] Subjective: * Chief Complaints: * 1 . DM/HTN. * Medical History: Objective: * Vitals: Assessment: Plan: * Treatment: * Billing Information: * Visit Code: * Procedure Codes: * Electronic signature of Nolberto Muniz MD on 11/16/2024 at 08:37 AM EDT Sign off status: Pending * Provider: Fely Muniz MD Date: 0 11/05/2024 Generated for Pb edge/Bryant/Pawanitting on: 0 11/16/2024 08:37 AM EDT
--- OUTSIDE RECORDS SUMMARY | 2024-11-09 05:30 | XMS_ITS ---
Author Organization [facility] Address [address] [place] [address] Y[place]I [place], [place] [id number] Care Team Providers Care Bacon Skinner Name Role Phone Chen Muniz Unavailable [phone] Allergies No Known Allergies Results Component Value Reference Range Notes POCT A1C Reviewed date:11/09/2024 10:05:44 AM Interpretation: Performing Lab: Notes/Report: Result 8.5 0-5.6 % Reason For Referral Reason DM foot eval Diagnosis 1 Type 2 diabetes genna itus (E11.9) Referral Organization Third Referring Provider First Name Chen Referring Provider Last Name Flavio Referring Provider Speciality Family Med opal Referred Provider Ramandeep Gonzalez Referred Provider Specialty Podiatry Referral Priority Routine REASON FOR VISIT DM and HTN Medications Medication SIG (Take, Route, Frequency, Duration) Notes Start Date End Date Status Diapers & Supplies - as directed as directed 7 times a day 05/01/2021 Not-Taking Bed Size Underpads as directed as directed once a day 05/01/2021 Not-Taking Misc. Devices - 30 x36 Bed mcallister prn 05/22/2021 Not-Taking Glucometer twice daily 10/29/2022 Not-Ta pari Amantadine HCl 100 MG 1 capsule Orally Once a day Not-Taking Trulicity 0.75 MG/0.5ML inject 0.75mg Subcutaneous once a week; Duration: 30 days 10/05/2024 Not-Taking Finasteride 5 MG TOME UMU TABLETA TODOS LOS AGUSTIN FOR 30 DAYS; Duration: 30 Not-Taking Fluticasone Propionate 50 MCG/ACT SPRAY 1 SPRAY EN CADA VENTANILLA DE LA NARIZ TODOS LOS AGUSTIN FOR 30 DAYS; Duration: 30 Not-Taking Naproxen 500 MG 1 tablet with food or milk as needed Orally every 12 hrs; Duration: 30 days please give instructions in romansh Not-Taking Latex Gloves Large - as directed as directed twice a day 05/01/2021 Not-Taking traZODone HCl 100 MG 1 tablet at bedtime Orally Once a day; Duration: 30 days 11/09/2024 Active Blood Glucose Test - 1 (one) In Vitro twice a day; Duration: 90 days whatever brand is covered by insurance needs refills please 03/21/2019 Active traZODone HCl 50 MG 1 tablet at bedtime as needed Orally at bedtime; Duration: 90 days As needed Active Tamsulosin HCl 0.4 MG 1 capsule Orally Once a day; Duration: 90 days 11/10/2020 Active Pravastatin Sodium 20 MG TOME UMU TABLETA TODOS LOS AGUSTIN FOR 30 DAYS Orally daily; Duration: 90 days Active buPROPion HCl ER (Smoking Det) 150 MG 1 TABLET Orally twice a day, AM, 5 PM; Duration: 90 days Not-Taking Lisinopril 2.5 MG TOME UMU TABLETA TODOS LOS AGUSTIN FOR 30 DAYS Orally Once a day; Duration: 90 days Active Tamsulosin HCl 0.4 MG 1 capsule Orally Once a day; Duration: 30 days 11/09/2024 Active metFORMIN HCl 1000 MG 1 tablet with a meal Orally Twice a day; Duration: 90 days Active Jardiance 10 MG 1 tablet Orally Once a day; Duration: 30 days 11/09/2024 Active Social History Sex Assigned At : Social History Observation Description Sex Assigned At Male Vital Signs Temperature 98.4 degrees Fahrenheit 11/10/19 25 Weight 120.4 lbs 11/09/2024 Height 68.00 in 11/09/2024 BMI 18.3 kg/m2 11/09/2024 Blood pressure systolic 90 mm Hg 11/10/19 25 Blood pressure diastolic 55 mm Hg 025 Heart Rate 71 /min 11/09/2024 Respiratory Rate 16 /min 11/09/2024 Weight-kg 54.61 kg 11/09/2024 Height-cm 172.72 cm 11/09/2024 occassional pain in Left willima e rib area Sasha Joyner 11/09/2024 09:53:35 AM EDT > Encounters Encounter Location Date Provider Diagnosis Third [address] [facility] [address] [facility] [place] [address] 11/09/2024 Chen Muniz Essential hyperte nsion I10 ; Type 2 diabetes mellitus E11.9 ; BPH (benign prostatic hyperplasia) N40.0 ; Insomnia G47.00 and Screening for thyroid disorder Z13.29 Assessments Encounter Date Diagnosis (ICD Code) Assessment Notes Treatment Notes Treatment Clinical Notes Section Notes 11/09/2024 Essential hypertension (ICD-10 - I10) Patient is currently on lisinopril 2.5mg , was advised to hold off meds, pt declines. pt advised to keep bp long, hypotension material provided to pt on ranges to look out for, what to do at home and when to go to ER. Life Style Modifications were discussed including: Reducing salt intake, regular exercise, reducing weight and avoiding smoking and alcohol intake. 11/09/2024 Type 2 diabetes mellitus (ICD-10 - E11.9) The patient is currently on metformin 1000mg BID. Last A1c was 9.5, A1c today is 8.5 pt declines insulin and also did not start trulicity medication, will start pt on jardiance, education material was provided to pt in risk of uncontrolled DM. I reiterated the benefit of a GLP1 in DM control, I recommend home blood sugar readings to be monitored frequently (daily fasting along with random (2 hours after meals). Pt was advised to inspect the feet daily. Patient was reminded to have yearly eye exam to look for diabetic retinopathy and yearly sales planner visit and PVU Pt will f/up with repeat labs in 3 months. 11/09/2024 BPH (benign prostatic hyperplasia) (ICD-10 - N40.0) [facility] BPH screening toold , pt score 30 with affecting quality of life I will start pt on flomax, PSA ordered if elevated will start finaestride and refer to urology, pt is in agreement with this plan. 11/09/2024 Insomnia (ICD-10 - G47.00) D/C hydroxyzine, due to anitcholinergic effect on elderly. Increase trazodone to 100mg and monitor. 11/09/2024 Screening for thyroid disorder (ICD-10 - Z13.29) due to recent weight loss check TSH due to smoking hx await labs of screening imaging studies as well as cologuard. Plan Of Treatment Medication Medication Name Sig Start Date Stop Date Notes traZODone HCl 100 MG 1 tablet at bedtime Orally Once a day; Duration: 30 days 11/09/2024 Tamsulosin HCl 0.4 MG 1 capsule Orally O nce a day; Duration: 30 days 11/09/2024 Jardiance 10 MG 1 tablet Orally Once a day; Duration: 30 days 11/09/2024 Treatment Notes Assessment Notes Essential hypertension Patient is currently on lisinopril 2.5mg , was advised to hold off meds, pt declines. pt advised to keep bp long, hypotension material provided to pt on ranges to look out for, what to do at home and when to go to ER. Life Style Modifications were discussed including: Reducing salt intake, regular exercise, reducing weight and avoiding smoking and alcohol intake. Type 2 diabetes mellitus The patient is currently on metformin 1000mg BID. Last A1c was 9.5, A1c today is 8.5 pt declines insulin and also did not start trulicity medication, will start pt on jardiance, education material was provided to pt in risk of uncontrolled DM. I reiterated the benefit of a GLP1 in DM control, I recommend home blood sugar readings to be monitored frequently (daily fasting along with random (2 hours after meals). Pt was advised to inspect the feet daily. Patient was reminded to have yearly eye exam to look for diabetic retinopathy and yearly sales planner visit and PVU Pt will f/up with repeat labs in 3 months. BPH (benign prostatic hyperplasia) [facility] BPH screening toold , pt score 30 with affecting quality of life I will start pt on flomax, PSA ordered if elevated will start finaestride and refer to urology, pt is in agreement with this plan. Insomnia D/C hydroxyzine, due to anitcholinergic effect on elderly. Increase trazodone to 100mg and monitor. Screening for thyroid disorder due to recent weight loss check TSH due to smoking hx await labs of screening imaging studies as well as cologuard. Pending Test Test Name Order Date TSH + FREE T4 PROFILE 11/09/2024 PSA, TOTAL, 3RD GENERATION 11/09/2024 Referrals Referral Date Details 11/09/2024 11/09/2024, DM foot Ramandeep pugh Next Appt Details Follow Up: 3 Months, Reason: Provider Name:Abel Leigh, 02/15/2025 09:30:00 AM, [address] [place], [place], [id number], Progress Notes * STEPHANIA BROWN, CDOB:11/1950 (74 yo M)Acc No.[id number]:11/09/2024 Medical Note Patient: Ricky CORONAREIsa Bernard Provider: Fely Muniz MD :1950 A ge:74 Y S ex:Male Date:11/09/2024 Address:[address] [place], [place] [id number] Check In:09:29 AM EST Subjective: * Chief Complaints: * 1 . DM and HTN. * HPI: I nterim History: pt seen in clinic for DM and HTN f/u Home CBG ranges below 150mg/dl, bp ranges systolic below 120mmhg. Pt reports meds compaliance to metfromin only for DM meds and lisinopril 2.5mg for HTN. Pt reports urinary concerns: nocturia accompanied with weak stream and urinary flow hesitancy which he reports this has been affecting his quality of life. His daughter also attributes weight loss, denies poor diet, difficulty swallowing, changes in BM , bloon in stool, cognitive impairment etc For his insomnia he takes trazodone 100mg as well as hydroxyzine 50mg nightly. He has no additonal concern. * ROS: N egative except mentioned above in the HPI. * Medical History: T ype 2 diabetes mellitus, Hypercholesteremia, Essential hypertension, Other transient cerebral ischemic attacks and related syndromes, CVA (cerebral vascular accident), Diabetic neuropathy, BPH (benign prostatic hyperplasia), Hearing loss, Erectile dysfunction, Cardiovascular disease with arteriosclerosis, Anxiety, Insomnia, Urinary incontinence. * Surgical History: l eft eye surgery 06/2023. * Hospitalization/Major Diagno stic Procedure: D enies Past Hospitalization. * Family History: F ather: . M other: . P aternal Grand Father: . P aternal Grand Mother: . M aternal Grand Father: . M aternal Grand Mother: . Brother: , CHF, diagnosed with Hypertension, Diabetes. S ister: alive, diagnosed with Hypertension, Cancer. S on(s): alive. D aughter(s): alive. 1 brother(s) , 5 sister(s) . 2 son(s) , 7 daughter(s) . . 2 sisters 1 brother 1 daughter has diabetes. * Medications: T aking Lisinopril 2.5 MG Tablet TOME UMU TABLETA TODOS LOS AGUSTIN FOR 30 DAYS Orally Once a day , Taking metFORMIN HCl 1000 MG Tablet 1 tablet with a meal Orally Twice a day , Taking Pravastatin Sodium 20 MG Tablet TOME UMU TABLETA TODOS LOS AGUSTIN FOR 30 DAYS Orally daily , Taking Blood Glucose Test - Strip 1 (one) In Vitro twice a day whatever brand is covered by insurance, Notes to Pharmacist: needs refills please, Taking traZODone HCl 50 MG Tablet 1 tablet at bedtime as needed Orally at bedtime As needed, Taking Tamsulosin HCl 0.4 MG Capsule 1 capsule Orally Once a day , Not-Taking/PRN buPROPion HCl ER (Smoking Det) 150 MG Tablet Extended Release 12 Hour 1 TABLET Orally twice a day, AM, 5 PM , Not-Taking/PRN Trulicity 0.75 MG/0.5ML Solution Auto-injector inject 0.75mg Subcutaneous once a week , Not-Taking/PRN Finasteride 5 MG Tablet TOME UMU TABLETA TODOS LOS AGUSTIN FOR 30 DAYS , Not- Taking/PRN Fluticasone Propionate 50 MCG/ACT Suspension SPRAY 1 SPRAY EN CADA VENTANILLA DE LA NARIZ TODOS LOS AGUSTIN FOR 30 DAYS , Not-Taking/PRN Naproxen 500 MG Tablet 1 tablet with food or milk as needed Orally every 12 hrs , Notes to Pharmacist: please give instructions in romansh, Not-Taking/PRN Latex Gloves Large - Miscellaneous as directed as directed twice a day , Not-Taking/PRN Diapers & Supplies - Miscellaneous as directed as directed 7 times a day , Not-Taking/PRN Bed Size Underpads as directed as directed once a day , Not-Taking/PRN Misc. Devices - Miscellaneous 30 x36 Bed mcallister prn , Not-Taking/PRN Glucometer twice daily , Not-Taking/PRN Amantadine HCl 100 MG Capsule 1 capsule Orally Once a day , Discontinued hydrOXYzine Pamoate 50 MG Capsule 1 capsule as needed for anxiety Oral daily As needed, Medication List reviewed and reconciled with the patient * Allergies: N .K.D.A. Objective: * Vitals: T emp:98.4F, Wt:120.4lbs, Ht: 68.00 in, BMI:18.3Index, BP:90/55mm Hg, HR:71/min, RR:16/min, Pain scale:81-10, Wt-k.61 kg, Ht-cm: 172.72 cm, Body Surface Area: 1.62. occassional pain in Left side rib areaBroshious, Sasha 11/09/2024 09:53:35 AM EDT > . * Examination: C QM Exceptions: Currently taking Aspirin: A spirin Use: N o G eneral appearance: alert, pleasant, well-nourished and in no acute distress. Head: normocephalic, atraumatic. Eyes: pupils equal, round, reactive to light. Heart: regular rate and rhythm without murmurs, gallops, clicks or rubs. Lungs: clear to auscultation bilaterally, with good air movement and no rales, rhonchi or wheezes. Psych: alert and oriented x 3, cooperative with exam, maintains good eye contact. Skin: No rashes. G eneral Examination: Foot exam: D ate 0 11/09/2024 S ensory testing performed: s ensations normal S ensory and motor testing performed: s ensations and strength normal P edal pulse taking performed: 2 + Assessment: * Assessment: 1. E ssential hypertension - I10 (Primary) 2 . T ype 2 diabetes mellitus - E11.9 3 . B PH (benign prostatic hyperplasia) - N40.0 4 . I nsomnia - G47.00 5 . S creening for thyroid disorder - Z13.29 Plan: * Treatment: 2. T ype 2 diabetes mellitus Start Jardiance Tablet, 10 MG, 1 tablet, Orally, Once a day, 30 days, 30, Refills 3. L AB: POCT A1C (Collection Date & Time - 11/09/2024 10:05 AM) Value Reference Range R esult 8.5 HH 0-5.6 - % * Sasha Joyner 11/09/2024 10:05:33 AM EDT > . Notes: The patient is currently on metformin 1000mg BID. Last A1c was 9.5, A1c today is 8.5 pt declines insulin and also did not start trulicity medication, will start pt on jardiance, education material was provided to pt in risk of uncontrolled DM. I reiterated the benefit of a GLP1 in DMcontrol, I recommend home blood sugar readings to be monitored frequently (daily fasting along with random (2 hours after meals). Pt was advised to inspect the feet daily. Patient was reminded to have yearly eye exam to look for diabetic retinopathy and yearly podiatristvisit and PVU Pt will f/up with repeat labs in 3 months. ? Referral To:Ramandeep Gonzalez??Podiatry ?Reason:DM foot eval 3.?BPH (benign prostatic hyperplasia)? Start Tamsulosin HCl Capsule, 0.4 MG, 1 capsule, Orally, Once a day, 30 days, 30, Refills 3.?LAB: PSA, TOTAL, 3RD GENERATION Notes: [facility] BPH screening toold , pt score 30 with affecting quality of life I will start pt on flomax, PSA ordered if elevated will start finaestride and refer to urology, pt is in agreement with this plan.??4.?Insomnia? Start traZODone HCl Tablet, 100 MG, 1 tablet at bedtime, Orally, Once a day, 30 days, 30, Refills 3.?? Notes: D/C hydroxyzine, due to anitcholinergic effect on elderly. Increase trazodone to 100mg and monitor.??5.?Screening for thyroid disorder?LAB: TSH + FREE T4 PROFILE Notes: due to recent weight loss check TSH due to smoking hx await labs of screening imaging studies as well as cologuard.?? * Procedure Codes: 8 3036 GLYCATED HEMOGLOBIN TEST, Modifiers: QW , 3078F HTN DIAST BP < 80, 3074F HTN SYST BP < 130, 3052F DM HG A1C = 8-9 * Follow Up: 3 Months * Ninoing Information: * Visit Code: 55670 Office Visit Est 30-39 minutes. * Procedure Codes: 99414 GLYCATED HEMOGLOBIN TEST. Modifiers: QW 3078F HTN DIAST BP < 80. 3074F HTN SYST BP < 130. 3052F DM HG A1C = 8-9. * Sign off status: Completed true * Provider: Fely Muniz MD Date: 0 11/09/2024 Generated for Pb edge/Bryant/eTransmitting on: 0 11/16/2024 08:37 AM EDT History and Physical Notes * HPI (History of Present Illness) Category Sub-Category Detail Notes Category Not es Interim History pt seen in clinic for DM and HTN f/u Home CBG ranges below 150mg/dl, bp ranges systolic below 120mmhg. Pt reports meds compaliance to metfromin only for DM meds and lisinopril 2.5mg for HTN. Pt reports urinary concerns: nocturia accompanied with weak stream and urinary flow hesitancy which he reports this has been affecting his quality of life. His daughter also attributes weight loss, denies poor diet, difficulty swallowing, changes in BM , bloon in stool, cognitive impairment etc For his insomnia he takes trazodone 100mg as well as hydroxyzine 50mg nightly. He has no additonal concern. Examination Category Sub-Category Detail Notes Category Not es General Examination Foot exam: Date: 11/09/2024 Sensory testing performed:: sensations n ormal Sensory and motor testing performed:: se nsations and strength normal Pedal pulse taking performed:: 2+ CQM Exceptions Currently taking Aspirin: Aspirin Use:: No General appearance: alert, pleasant, well-nourished and in no acute distress. Head: normocephalic, atraumatic. Eyes: pupils equal, round, reactive to light. Heart: regular rate and rhythm without murmurs, gallops, clicks or rubs. Lungs: clear to auscultation bilaterally, with good air movement and no rales, rhonchi or wheezes. Psych: alert and oriented x 3, cooperative with exam, maintains good eye contact. Skin: No rashes. Consultation Request Notes Referral Date Referring Provider Referred Provider Not es 11/09/2024 Chen Muniz Jessica DM foot ev al
--- OUTSIDE RECORDS SUMMARY | 2024-11-16 08:37 | XMS_ITS | Clinical Summary ---
Author Organization [facility] Address [address] [place] [address] Care Team Providers Care Solar Lab Technician Name Role Phone Unavailable Primary Care Provider Unavailabl e Social History Tobacco Use Types Packs/Day Years Used Date Smoking Tobacco: Never Assessed Sex and Gender Information Value Date Recorded Sex Assigned at Not on file Legal Sex Male 12:22 AM EDT Gender Identity Not on file Sexual Orientation Not on file Plan of Treatment Not on file
--- OUTSIDE RECORDS SUMMARY | 2024-11-16 08:37 | XMS_ITS | Encounter Summary ---
Author Organization [facility] Address [address] [place] [address] Care Team Providers Care Hydroelectric Component Machinist Name Role Phone Dayron Morris DO Unavailable [phone] Dayron Morris DO Primary Care Provider [phone] Unallocated, [facility] Provider Primary Care Provi rosario Encounter Details Date Type Department Care Team (Late st Contact Info) Description 07/12/2023 Orders Only [facility] [address] [facility] [address] [place] [address] Abby Araujo RN [address] [facility] [address] [place] [address] Asymmetric SNHL (sensorineural hearing loss); Left-sided tinnitus; Otalgia, left Social History Tobacco Use Types Packs/Day Years Used Date Smoking Tobacco: Unknown Alcohol Use Standard Drinks/Week Comments Defer 0 (1 standard drink = 0.6 oz pur e alcohol) Sex and Gender Information Value Date Recorded Sex Assigned at Not on file Legal Sex Male 6:51 PM EDT Gender Identity Not on file Sexual Orientation Not on file documented as of this encounter Plan of Treatment Upcoming Encounters Date Type Department Care Team (Late st Contact Info) Description 01/07/2025 8:45 AM EDT Clinical Support [facility] [address] [facility] [address] [place] [address] Sonia Werner, [facility] [address] [facility] [place] [address] 01/08/2025 9:00 AM EDT Office Visit [facility] [address] [facility] [address] [place] [id number] Vidhya Avery MD [address] [place] [address] documented as of this encounter Visit Diagnoses Diagnosis Asymmetric SNHL (sensorineural hearing loss) Sensorineural hearing loss, asymmetrical Left-sided tinnitus Unspecified tinnitus Otalgia, left documented in this encounter Care Teams Hydroelectric Component Machinist Relationship Specialty Start Date End Date Dayron Morris DO [address] [facility] [address] [place] [address] PCP - Devoted 11/09/22 Dayron Morris DO [address] [facility] [address] [place] [address] PCP - General Family Medicine 06/11/23 05/01/24 Unallocated, Noms MD Jeff [address] [place] [address] PCP - General Family Medicine 05/02/24 documented as of this encounter
--- OUTSIDE RECORDS SUMMARY | 2024-11-16 08:37 | XMS_ITS | Clinical Summary ---
Author Organization [facility] Address [address] [facility], [address] [place] [address] Care Team Providers Care Wildland Fire Operations Specialist Name Role Phone Unavailable Primary Care Provider Unavailabl e Medications tamsulosin (FLOMAX) 0.4 MG capsule Take 0.4 mg by mouth daily Take two capsules by mouth after dinner Active metFORMIN (GLUCOPHAGE) 1000 MG tablet Take 1,000 mg by mouth 2 times daily (with meals) Active fexofenadine (ELIZBAETH) 180 MG tablet Take 180 mg by mouth daily Active lisinopril (PRINIVIL;ZESTR IL) 2.5 MG tablet Take 2.5 mg by mouth daily Active pravastatin (PRAVACHOL) 10 MG tablet Take 10 mg by mouth daily Active Social History Tobacco Use Types Packs/Day Years Used Date Smoking Tobacco: Never Assessed Sex and Gender Information Value Date Recorded Sex Assigned at Not on file Legal Sex Male 2:32 AM EDT Gender Identity Not on file Sexual Orientation Not on file Last Filed Vital Signs Vital Sign Reading Time Taken Comments Blood Pressure 149/87 09/09/2018 2:35 AM EDT Pulse 90 09/09/2018 2:35 AM EDT Temperature 36.6 C (97.9 F) 09/09/2018 2:35 AM EDT Respiratory Rate 18 09/09/2018 2:35 AM EDT Oxygen Saturation 98% 09/09/2018 2:35 AM EDT Inhaled Oxygen Concentration - - Weight 72.6 kg (160 lb) 09/09/2018 2:36 AM EDT Height - - Body Mass Index - - Plan of Treatment Not on file
--- OUTSIDE RECORDS SUMMARY | 2024-11-16 08:37 | XMS_ITS | Clinical Summary ---
Author Organization [facility] Address [address] [place] [address] Care Team Providers Care Physician Intensivist Name Role Phone Dayron Morris DO Unavailable Unallocated, Noms Provider MD Primary Care Provi rosario Allergies No known active allergies Medications amantadine (Symmetrel) 100 MG capsule Take 1 capsule by mouth 1 (one) time each day at the same time Active traZODone (Desyrel) 50 MG tablet Take 50 mg by mouth at bedtime Active pravastatin (Pravachol) 20 MG tablet Take 20 mg by mouth Daily Active lisinopril 2.5 MG tablet Take 2.5 mg by mouth Daily Active finasteride (Proscar) 5 MG tablet Take 5 mg by mouth Daily Active metFORMIN (Glucophage) 1000 MG tablet Take 1,000 mg by mouth in the morning and 1,000 mg in the evening. Take with meals. Active tamsulosin (Flomax) 0.4 MG 24 hr capsule Take 0.4 mg by mouth Daily Active fluticasone (Flonase) 50 MCG/ACT nasal spray Administer 1 spray into each nostril Daily Active naproxen (Naprosyn) 500 MG tablet Take 500 mg by mouth in the morning and 500 mg at noon and 500 mg in the evening. Take with meals. Active hydrOXYzine pamoate (Vistaril) 50 MG capsule Take 50 mg by mouth every 12 (twelve) hours Active buPROPion (Zyban) 150 MG 12 hr tablet Take 150 mg by mouth 1 (one) time each day at the same time 3 Active levETIRAcetam (Keppra) 250 MG tabletIndicatio ns:Tremor TOME 1 TABLETA POR VIA ORAL CADA 12 HORAS FOR 30 DAYS 180 tablet 1 4 Active Active Problems Problem Noted Date Diagnosed Date Paresthesia of skin 08/04/2023 Overview (08/04/2023): He is having continued numbness to LUE most consistent with residual stroke symptom. EMG of the bilateral upper extremities 09/2019 revealed a remote C8 radiculopathy on the left. He denies worsening. CVA (cerebral vascular accident) 08/04/2023 Overview (08/04/2023): Patient with history of CVA in March 2019 while in [place]. His family them brought him here to live with them. He was started on Plavix and aspirin but was not on aspirin prior. He was then transitioned to aspirin only. He is now taking every other day due to bruising complications. His primary language is Nigerien and his family interprets for him during his visit. He denies new signs or symptoms of stroke. He does have residual numbness to his left upper extremity. Per report, he had carotid ultrasound in 2018 that was normal. Updated carotid ultrasound 08/25/20 revealed no hemodynamically significant stenosis. His TCD revealed some increase in MFVs but otherwise was within normal limits. He remains compliant with aspirin. He does ambulate with cane was some mild gait instability. He denies falls. He does have some persistent numbness in the left hand.overall he is doing well. We discussed the high morbidity and mortality associated with falls and the fat that she has multiple risk factors that increases her chance of falls. We discussed fall precautions at length including taking up throw rugs, changing position slowly, maintaining hydration, having a light on at night, grab bars in the shower and ensuring pets are not a tripping serge if applicable. 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 06/05/2015 Family History Medical History Relation Name Comments Diabetes Brother HTN Brother Heart failure Brother No Known Problems Daughter Cancer Sister HTN Sister No Known Problems Son Relation Name Status Comments Brother Alive Daughter Alive x7 Father Maternal Grandfather Maternal Grandmother Mother Paternal Grandfather Paternal Grandmother Sister Alive x8 Son Alive x2 Social History Tobacco Use Types Packs/Day Years Used Date Smoking Tobacco: Every Day Cigarettes Tobacco Cessation:Counseling Given: Not Answered Alcohol Use Standard Drinks/Week Comments Yes 0 (1 standard drink = 0.6 oz pur e alcohol) AUDIT-C Answer Date Recorded Q1: How often do you have a drink containing alc ohol? Monthly or less 08/04/2023 Q2: How many drinks containi ng alcohol do you have on a typical day when you are drinking? 1 or 2 08/04/2023 Q3: How often do you have si x or more drinks on one occasion? Never 08/04/2023 Sex and Gender Information Value Date Recorded Sex Assigned at Not on file Legal Sex Male 6:51 PM EDT Gender Identity Not on file Sexual Orientation Not on file Last Filed Vital Signs Vital Sign Reading Time Taken Comments Blood Pressure 143/75 07/12/2023 10:39 AM EDT Pulse - - Temperature - - Respiratory Rate - - Oxygen Saturation - - Inhaled Oxygen Concentration - - Weight 67.1 kg (148 lb) 07/12/2023 10:39 AM EDT Height 162.6 cm (5' 4 ) 07/12/2023 10:39 AM EDT Body Mass Index 25.4 07/12/2023 10:39 AM EDT Plan of Treatment Upcoming Encounters Date Type Department Care Team (Late st Contact Info) Description 01/07/2025 8:45 AM EDT Clinical Support [facility] [address] [facility] [address] [place] [id number] Sonia Werner, [facility] [address] [facility] [place] [address] 01/08/2025 9:00 AM EDT Office Visit [facility] [address] [facility] [address] [place] [phone] Vidhya Avery MD [address] [place] [address] Health Maintenance Due Date Last Done Comments CT Colonography 1950 Diabetes: Hemoglobin A1C 1950 FIT-DNA 1950 FIT 1950 FOBT 1950 Sigmoidoscopy 1950 Diabetes: Retinopathy Screening 1962 Diabetes: Urine Protein Screening 1971 Pneumococcal Vaccine: 65+ Ye ars (1 of 2 - PCV) 1971 Medicare Annual Wellness (AWV) 11/30/2023 11/29/2022 , 11/29/2022 Influenza Vaccine (#1) 2024 , 04/17/2019, 01/04/2018, Additional history exists Colonoscopy 10/14/2031 10/13/2021 Colorectal Cancer Screening 10/14/2031 Insurance [employer] Care Teams Physician Intensivist Relationship Specialty Start Date End Date Dayron Morris DO [address] [place] [address] PCP - Devoted 11/09/22 Unallocated, Noms Provider, [address] [place] [address] PCP - General Family Medicine 05/02/24
--- OUTSIDE RECORDS SUMMARY | 2024-11-16 08:37 | XMS_ITS | Encounter Summary ---
Author Organization [facility] Address [address] [place] [address] Care Team Providers Care Warehouse Delivery Manager Name Role Phone Dayron Morris DO Unavailable [phone] Dayron Morris DO Primary Care Provider [phone] Unallocated, Noms Provider Primary Care Provi rosario Encounter Details Date Type Department Care Team (Late st Contact Info) Description 07/27/2023 Clinisync Result Encounter [facility] External Department Unsolicited Vidhya Avery MD [address] [place] [address] Social History Tobacco Use Types Packs/Day Years [...] Description 01/07/2025 8:45 AM EDT Clinical Support [facility] [address] [place] [address] Sonia Werner, [facility] [address] [place] [address] 01/08/2025 9:00 AM EDT Office Visit [facility] [place] [facility] 112 [facility] [address] [place] [phone] Vidhya Avery MD 112 [facility] [address] [place] [address] documented as of this encounter Procedures Procedure Name Priority Date/Time Associated Diagnosis Comments MRI HEAD/BRAIN WO/W CONTR 07/27/2023 9:26 AM EDT documented in this encounter Results * MRI HEAD/BRAIN WO/W CONTR (07/27/2023 9:26 AM EDT) Anatomical Region Laterality Modality Radiographic Tracy ging 07/27/2023 9:26 AM EDT Narrative 07/27/2023 9:29 [place] [address] Magnetic Resonance Report Signed Patient: DEACON MARCIAL MR#: [id number] : 1950 Acct:[id number] Age/Sex: 73 / M ADM Date: 07/26/23 Loc: LAB Attending Dr: Vidhya Avery M.D. Ordering Physician: Vidhya Avery M.D. Date of Service: 07/26/23 Procedure(s): MR head/brain wo/w con Accession Number(s): [id number] cc: DENISHA KING M.D.; Vidhya Avery M.D. 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 TECHNIQUE: Multiplanar, multisequential MRI images of brain were obtained without and with injection of contrast. FINDINGS: This study is limited as the patient aborted early. All the sequences are obtained. The cerebral sulci as well as ventricular system are enlarged consistent with mild ex vacuo cerebral volume loss. There is encephalomalacia within the left temporal lobe likely due to prior trauma or CVA. There is no restricted diffusion. Hyperintensities on T2 and FLAIR images in the constance and wesley radiata and centrum semiovale with sparing of U fibers are nonspecific, statistically most likely consistent with microvascular ischemic changes. There is no intracranial mass, mass effect, midline shift, intra or extra-axial fluid collection or large hemorrhage. No definite abnormality of the cochlea vestibular nerves or semicircular canals is noted. No abnormal enhancing lesion. Normal flow-void in the intracranial vessels is noted. There is a retention cyst within the right maxillary sinus. The visualized portions of orbits, mastoid air cells as well as remainder of paranasal sinuses are unremarkable. MR/MR head/brain wo/w con IMPRESSION: Limited study as the patient aborted early. No acute intracranial process is noted. No definite radiological finding to explain patient's symptoms. Electronically authenticated by: DIANE MIRANDA Date: 07/27/2023 09:26 Dictated By: Diane Miranda M.D. Signed By: 07/27/23928 DD/ 5 TD/TT: Medical Director Of Hospice: Procedure Note Radiology, Radiologist, MD - 07/27/2023 [place] [address] Magnetic Resonance Report Signed Patient: KAITLIN MARCIAL#: [id number] : 1950cct:[id number] Age/Sex: 73 / MADM Date: 07/26/23 Loc: LAB Attending Dr: Vidhya Avery M.D. Ordering Physician: Vidhya Avery M.D. Date of Service: 07/26/23 Procedure(s): MR head/brain wo/w con Accession Number(s): [id number] cc: DENISHA KING M.D.; Vidhya Avery M.D. 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 TECHNIQUE: Multiplanar, multisequential MRI images of brain were obtained without and with injection of contrast. FINDINGS: This study is limited as the patient aborted early. All the sequences are obtained. The cerebral sulci as well as ventricular system are enlarged consistentwith mild ex vacuo cerebral volume loss. There is encephalomalacia within the left temporal lobe likely due toprior trauma or CVA. There is no restricted diffusion. Hyperintensities on T2 and FLAIR imagesin the constance and wesley radiata and centrum semiovale with sparing of U fibersare nonspecific, statistically most likely consistent with microvascularischemic changes. There is no intracranial mass, mass effect, midline shift, intra or extra-axial fluid collection or large hemorrhage. No definite abnormality of thecochlea vestibular nerves or semicircular canals is noted. No abnormal enhancing lesion. Normal flow-void in the intracranial vessels is noted. There is a retention cyst within the right maxillary sinus. The visualized portions of orbits, mastoid air cells as well as remainderof paranasal sinuses are unremarkable. MR/MR head/brain wo/w con IMPRESSION: Limited study as the patient aborted early. No acute intracranial processis noted. No definite radiological finding to explain patient's symptoms. Electronically authenticated by: DIANE MIRANDA Date: 07/27/2023 09:26 Dictated By: Diane Miranda M.D. Signed By:07/27/23928 DD/ 5 TD/TT: Medical Director Of Hospice: Vidhya Avery MD IMG XR PROCEDURES Final Resul t documented in this encounter Visit Diagnoses Not on filedocumented in this encounter Care Teams Warehouse Delivery Manager Relationship Specialty Start Date End Date Dayron Morris DO [address] [place] [address] PCP - Devoted 11/09/22 Dayron Morris DO [address] [place] [address] PCP - General Family Medicine 06/11/23 05/01/24 Unallocated, Noms Provider, [address] [place] [address] PCP - General Family Medicine 05/02/24 documented as of this encounter
--- OUTSIDE RECORDS SUMMARY | 2024-11-16 08:37 | XMS_ITS | Clinical Summary ---
Author Organization [email or web address] Address [id number] [address] [place] [address] Care Team Providers Care Critical Care Technician Name Role Phone Chen Muniz MD Primary Care Provider [phone] Allergies No known active allergies Medications metFORMIN (GLUCOPHAGE) 1000 mg tablet Take 1,000 mg by mouth 2 (two) times a day. 1 7 Active VENTOLIN HFA 90 mcg/actuation inhaler INHALE 2 PUFFS BY MOUTH EVERY 4 - 6 HOURS NEEDED 0 7 Active multivitamin (THERAGRAN) tablet Take 1 tablet by mouth. 6 Active finasteride (PROSCAR) 5 mg tablet Take 5 mg by mouth in the morning. 2 Active hydrOXYzine (VISTARIL) 50 mg capsule Take 50 mg by mouth in the morning. 2 Active traZODone (DESYREL) 50 mg tablet Take 50 mg by mouth nightly. 2 Active tamsulosin (FLOMAX) 0.4 mg capsule Take 0.4 mg by mouth in the morning. 2 Active pravastatin (PRAVACHOL) 20 mg tablet Take 20 mg by mouth in the morning. 2 Active sod sulf-pot chloride-mag sulf (SUTAB) 1.479-0.188- 0.225 gram tabletIndicatio ns:Encounter for screening colonoscopy Please see instructional sheet given to patient from doctors office 24 tablet 2 Active Active Problems No known active problems Encounters Date Type Department Care Team Description 10/05/2024 Travel from Last 3 Months Family History Medical History Relation Name Comments No Known Problems Father No Known Problems Mother Relation Name Status Comments Father Mother Social History Tobacco Use Types Packs/Day Years Used Date Smoking Tobacco: Every Day Cigarettes 0.3 30 Smokeless Tobacco: Never Alcohol Use Standard Drinks/Week Comments Yes 0 (1 standard drink = 0.6 oz pur e alcohol) SOMETIMES Childcare Answer Date Recorded Childcare Unknown 09/21/2018 Employment Answer Date Recorded Employment Unknown 09/21/2018 Purpose - Life Answer Date Recorded Purpose and direction in life Unknown Sex and Gender Information Value Date Recorded Sex Assigned at Not on file Legal Sex Male 1:49 PM EDT Gender Identity Not on file Sexual Orientation Not on file Last Filed Vital Signs Vital Sign Reading Time Taken Comments Blood Pressure 120/70 02/04/2017 10:59 AM EDT Pulse - - Temperature - - Respiratory Rate - - Oxygen Saturation - - Inhaled Oxygen Concentration - - Weight 69.9 kg (154 lb) 02/18/2017 10:40 AM EST Height 167.6 cm (5' 6 ) 02/18/2017 10:40 AM EST Body Mass Index 24.86 02/18/2017 10:40 AM EST Plan of Treatment Health Maintenance Due Date Last Done Comments Depression Screening 1964 Tobacco Screening 1964 Adult BMI Screening 1970 Zoster (Shingles) Vaccine (1 of 2) 2002 Fall Risk Screening 2017 COVID-19 Vaccine (2023-2 5 season) 2023 03/23/2021, 07/22/2020, 07/15/2020, Additional history exists Influenza Vaccine 12/10/2024 06/08/2023, , 01/04/2018, Additional history exists DTaP,Tdap and Td Vaccines (2 - Td or Tdap) 06/08/2033 06/08/2023 Medical Devices Not on file Procedures Procedure Name Priority Date/Time Associated Diagnosis Comments CBC WITH AUTO DIFFERENTIAL Routine 10/05/2024 9:58 AM EDT Essential (primary) hypertension Pure hypercholesterolemi a, unspecified LIPID PROFILE Routine 10/05/2024 9:58 AM EDT Essential (primary) hypertension Pure hypercholesterolemi a, unspecified COMPREHENSIVE METABOLIC PANEL Routine 10/05/2024 9:58 AM EDT Essential (primary) hypertension Pure hypercholesterolemi a, unspecified from Last 3 Months Results * CBC auto differential (10/05/2024 9:58 AM EDT) WBC 5.6 4 - 11 x10E9/L 10/05/2024 2:40 PM EDT [facility] RBC Count 4.34 4.1 - 5.7 X10E12/L 10/05/2024 2:40 PM EDT [facility] Hemoglobin 13.8 13 - 17 g/dL 10/05/2024 2:40 PM EDT [facility] Hematocrit 41.1 39 - 50 % 10/05/2024 2:40 PM EDT [facility] MCV 95 80 - 100 fL 10/05/2024 2:40 PM EDT [facility] MCH 31.7 27 - 34 pg 10/05/2024 2:40 PM EDT [facility] MCHC 33.5 32 - 36 g/dL 10/05/2024 2:40 PM EDT [facility] RDW 12.8 11.5 - 15 % 10/05/2024 2:40 PM EDT [facility] Platelet Count 202 150 - 450 X10E9/L 10/05/2024 2:40 PM EDT [facility] MPV 8.4 7 - 12 fL 10/05/2024 2:40 PM EDT [facility] Neutrophils % 51.7 % 10/05/2024 2:40 PM EDT [facility] Lymphocytes % 37.4 % 10/05/2024 2:40 PM EDT [facility] Monocytes % 8.5 % 10/05/2024 2:40 PM EDT [facility] Eosinophils % 1.7 % 10/05/2024 2:40 PM EDT [facility] Basophils % 0.7 % 10/05/2024 2:40 PM EDT [facility] Neutrophils Absolute (A) 2.9 1.5 - 6.6 10*3/uL 10/05/2024 2:40 PM EDT [facility] Lymphocytes Absolute 2.1 1.0 - 3.5 10*3/uL 10/05/2024 2:40 PM EDT [facility] Monocytes Absolute 0.5 0.0 - 0.9 10*3/uL 10/05/2024 2:40 PM EDT [facility] Eosinophils Absolute 0.1 0.0 - 0.4 10*3/uL 10/05/2024 2:40 PM EDT [facility] Basophils Absolute 0.0 0.0 - 0.2 10*3/uL 10/05/2024 2:40 PM EDT [facility] Differential Type AUTOMATED DIFFERENTIAL 10/05/2024 2:40 PM EDT [facility] Blood Venous blood / Unknown Venipuncture / Unknown 10/05/2024 9:58 AM EDT 10/05/2024 9:58 AM EDT us Chen Muniz MD LAB BLOOD ORDERABLES Final Re sult [facility] [address] [place] [address], [place] [phone] * (ABNORMAL) Lipid profile (10/05/2024 9:58 AM EDT) CHOLESTEROL 205(H) 150 - 200 mg/dL 10/05/2024 3:02 PM EDT [facility] TRIGLYCERIDE 133 27 - 150 mg/dL 10/05/2024 3:02 PM EDT [facility] HDL CHOLESTEROL 59 >39 mg/dL 3:02 PM EDT [facility] Comment: HDL <40 mg/dL - High Risk HDL > or = 40mg/dL- Desirable HDL >60 mg/dL - Negative Risk LDL (CALC) 119 <130 mg/dL 10/05/2024 3:02 PM EDT [facility] Comment: LDL <100 mg/dL - Desirable LDL >160 mg/dL - High Risk CHOLESTEROL:HDL 3.5 1.0 - 5.0 3:02 PM EDT [facility] VERY LOW LIPOPROTEIN 27 0 - 30 mg/dL 10/05/2024 3:02 PM EDT [facility] Blood Venous blood / Unknown Venipuncture / Unknown 10/05/2024 9:58 AM EDT 10/05/2024 9:58 AM EDT us Chen Muniz MD LAB BLOOD ORDERABLES Final Re sult [facility] [address] [place] [address], [place] [phone] * (ABNORMAL) Comprehensive metabolic panel (10/05/2024 9:58 AM EDT) SODIUM 140 134 - 146 mmol/L 10/05/2024 3:02 PM EDT [facility] POTASSIUM 4.1 3.5 - 5.0 mmol/L 10/05/2024 3:02 PM EDT [facility] CHLORIDE 106 98 - 109 mmol/L 10/05/2024 3:02 PM EDT [facility] CARBON DIOXIDE 30 22 - 32 mmol/L 10/05/2024 3:02 PM EDT [facility] ANION GAP 4(L) 5 - 15 mmol/L 10/05/2024 3:02 PM EDT [facility] BLOOD UREA NITROGEN 11 5 - 27 mg/dL 10/05/2024 3:02 PM EDT [facility] CREATININE 0.71 0.60 - 1.30 mg/dL 10/05/2024 3:02 PM EDT [facility] Comment:METHOD TRACEABLE TO IDMS STANDARD GLUCOSE 109(H) 65 - 99 mg/dL 10/05/2024 3:02 PM EDT [facility] CALCIUM 9.1 8.5 - 10.5 mg/dL 10/05/2024 3:02 PM EDT [facility] TOTAL PROTEIN 6.5 6.0 - 8.0 g/dL 10/05/2024 3:02 PM EDT [facility] ALBUMIN 3.8 3.2 - 5.3 g/dL 10/05/2024 3:02 PM EDT [facility] ALKALINE PHOSPHATASE 51 39 - 130 U/L 10/05/2024 3:02 PM EDT [facility] AST 14 <=41 U/L 10/05/2024 3:02 PM EDT [facility] ALT 10 <=40 U/L 10/05/2024 3:02 PM EDT [facility] BILIRUBIN,TOTAL 0.6 0.3 - 1.2 mg/dL 10/05/2024 3:02 PM EDT [facility] EGFR Non-Race Dependent >90 >=60 ml/min/1.7 3sq.m 10/05/2024 3:02 PM EDT [facility] Comment: Reported eGFR is based on the CKD-EPI 2020 equation that does not use a race coefficient. Blood Venous blood / Unknown Venipuncture / Unknown 10/05/2024 9:58 AM EDT 10/05/2024 9:58 AM EDT us Chen Muniz MD LAB BLOOD ORDERABLES Final Re sult [facility] [address] [place] [address], [place] [phone] from Last 3 Months Insurance MEDICAID [place] [employer] MEDICARE ADVANTAGE Care Teams Critical Care Technician Relationship Specialty Start Date End Date Chen Muniz MD [address] [place] [address] PCP - General Family Medicine 10/05/24
--- OUTSIDE RECORDS SUMMARY | 2024-11-16 08:38 | XMS_ITS | Clinical Summary ---
Author Organization [facility] Address [address] [place], [place] [id number] Care Team Providers Care Computer Operations Analyst Name Role Phone Yolie Storm MD Primary Care Provider [phone] Allergies No known active allergies Medications METFORMIN HCL (METFORMIN ORAL) Take by mouth. Active multivitamin tablet Take 1 tablet by mouth once daily. 0 05/30/2015 Active ketorolac (ACULAR) 0.5 % ophthalmic solution Use 1 Drop in the right eye three times daily. 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 06/05/2015 Cataract, nuclear sclerotic senile 05/10/2015 Family History Medical History Relation Comments Cancer Sister Relation Status Comments Sister Social History Tobacco Use Types Packs/Day Years Used Date Smoking Tobacco: Every Day Cigarettes 0.2 40 Alcohol Use Standard Drinks/Week Comments Yes 1 (1 standard drink = 0.6 oz pur e alcohol) occasional Sex and Gender Information Value Date Recorded Sex Assigned at Not on file Legal Sex Male 3:50 PM EDT Gender Identity Not on file Sexual Orientation Not on file Last Filed Vital Signs Vital Sign Reading Time Taken Comments Blood Pressure 120/65 06/04/2015 9:12 AM EST Pulse 64 06/04/2015 9:12 AM EST Temperature 36.1 C (97 F) 06/04/2015 8:07 AM EST Respiratory Rate 16 06/04/2015 9:12 AM EST Oxygen Saturation 100% 06/04/2015 9:12 AM EST Inhaled Oxygen Concentration - - Weight 79.4 kg (175 lb) 05/30/2015 12:45 PM EST Height 177.8 cm (5' 10 ) 05/30/2015 12:45 PM EST Body Mass Index 25.11 05/30/2015 12:45 PM EST Plan of Treatment Health Maintenance Due Date Last Done Comments Abdominal Aortic Aneurysm Screening 1952 Anxiety Screening 1970 Depression Screening 1970 Hepatitis C Screening 1970 DTaP,Tdap,Td Vaccine (1 - Tdap) [address] Colonography 1997 Cologuard (FIT-DNA) 1997 Colonoscopy 1997 Colorectal Cancer Screening 1997 Diabetes Screening 1997 Fecal Occult Blood 1997 Sigmoidoscopy 1997 Pneumococcal Vaccine: 50+ (1 of 1 - PCV) 2002 Shingrix Vaccine (1 of 2) 2002 Advance Directive Discussion 04/11/2024 Influenza Vaccine (#1) 2024 RSV Vaccine (1 - 1-dose 75+ series) 2027 Medical Devices Implanted Type Area Bioprocess Development Engineer Device Identifier Shelf Expiration Date Model / Serial / Lot Lens Acrysof Iq +21 Diopter Natural Stableforce 0 D Biconvex 118.7 - [id number] Implanted:Qty: 1 on 06/04/2015 at [facility] Intraocular Lens Right: Eye - Lens [employer] [facility] 01/09/2020 [id number] 21.0 / [id number] / Care Teams Computer Operations Analyst Relationship Specialty Start Date End Date Yolie Storm MD [address] [place] [address] PCP - General Family Medicine 01/29/15
--- OUTSIDE RECORDS SUMMARY | 2024-11-16 08:38 | XMS_ITS | Patient Health Record ---
Author Organization [facility] vices Address [address] [place], [place] [id number] Care Team Providers Care Medical Records Clerk Name Role Phone Chen Muniz Unavailable [phone] StevenKaren elizabeth Unavailable [phone] Jarrod Sternas Unavailable [phone] Alejandra Oropeza Unavailable [phone] Allergies No Known Allergies Results Component Value Reference Range Notes POCT A1C Reviewed date:10/05/2024 09:02:42 AM Interpretation: Performing Lab: Notes/Report: POCT A1C Reviewed date:11/09/2024 10:05:44 AM Interpretation: Performing Lab: Notes/Report: CBC AND AUTOMATED DIFFERENTI AL Reviewed date:10/08/2024 08:15:49 AM Interpretation: Performing Lab: Notes/Report: WBC 5.6 4-11 x10E9/L RBC COUNT 4.34 4.1-5.7 X10E12/L HEMOGLOBIN 13.8 13-17 g/dL HEMATOCRIT 41.1 39-50 % MCV 95 80-100 fL MCH 31.7 27-34 pg MCHC 33.5 32-36 g/dL RDW 12.8 11.5-15 % PLATELET COUNT 202 150-450 X10E9/L MPV 8.4 7-12 fL EOSINOPHILS RELATIVE PERCENT BY AUTOMATED COUNT 1.7 BASOPHILS RELATIVE PERCENT BY AUTOMATED COUNT 0.7 NEUTROPHILS ABSOLUTE COUNT BY AUTOMATED COUNT 2.9 1.5-6.6 10*3/uL LYMPHOCYTES ABSOLUTE COUNT (10*3/UL) BY AUTOMATED COUNT 2.1 1.0-3.5 10*3/uL MONOCYTES ABSOLUTE COUNT (10*3/UL) BY AUTOMATED COUNT 0.5 0.0-0.9 10*3/uL EOSINOPHILS ABSOLUTE COUNT (10*3/UL) BY AUTOMATED COUNT 0.1 0.0-0.4 10*3/uL CELLAVISION DIFFERENTIAL TYPE AUTOMATED DIFFERENTIAL PERFORMED AT [address], [place] [address] NEUTROPHILS RELATIVE PERCENT BY AUTOMATED COUNT 51.7 LYMPHOCYTES RELATIVE PERCENT BY AUTOMATED COUNT 37.4 MONOCYTES RELATIVE PERCENT BY AUTOMATED COUNT 8.5 BASOPHILS ABSOLUTE COUNT (10*3/UL) BY AUTOMATED COUNT 0.0 0.0-0.2 10*3/uL COMPREHENSIVE METABOLIC PANE L Reviewed date:10/08/2024 08:15:37 AM Interpretation: Performing Lab: Notes/Report: Reported eGFR is based [place] [address] not use a race coefficient. CKD-EPI 2020 equation that does SODIUM 140 134-146 mmol/L POTASSIUM 4.1 3.5-5.0 mmol/L CHLORIDE 106 98-109 mmol/L CARBON DIOXIDE 30 22-32 mmol/L ANION GAP 4 5-15 mmol/L BLOOD UREA NITROGEN 11 5-27 mg/dL CREATININE 0.71 0.60-1.30 mg/dL METHOD TRACE ABLE TO [facility] STANDARD GLUCOSE 109 65-99 mg/dL CALCIUM 9.1 8.5-10.5 mg/dL TOTAL PROTEIN 6.5 6.0-8.0 g/dL ALBUMIN 3.8 3.2-5.3 g/dL ALKALINE PHOSPHATASE 51 39-130 U/L AST 14 <=41 U/L BILIRUBIN,TOTAL 0.6 0.3-1.2 mg/dL ALT 10 <=40 U/L EGFR (CKD-EPI) NON-RACE DEPENDENT >90 >=60 ml/min/1.73sq.m LIPID PROFILE Reviewed date:10/08/2024 08:15:25 AM Interpretation: Performing Lab: Notes/Report: CHOLESTEROL 205 150-200 mg/dL TRIGLYCERIDE 133 27-150 mg/dL HDL CHOLESTEROL 59 >39 mg/dL HDL > or = 40mg/dL- Desirable HDL >60 mg/dL - Negative Risk HDL <40 mg/dL - High Risk LDL (CALC) 119 <130 mg/dL LDL <100 mg/dL - Desirable LDL >160 mg/dL - High Risk CHOLESTEROL:HDL 3.5 1.0-5.0 NA VERY LOW LIPOPROTEIN 27 0-30 mg/dL PERFORMED AT [facility] [address],[place] [address] Reason For Referral Reason left ear hearing los s Diagnosis 1 Encounter for screen ing for eye and ear disorders (Z13.5) Referral Organization Third Referring Provider First Name Chen Referring Provider Last Name Flavio Referring Provider [facility] opal Referred Provider [facility] Referred Provider Specialty Ear, nose an d throat surgeon General Notes Pina Salamanca 10/26/19 09:20:59 AM >Spoke with referral office and they tried several times to contact pt and no response., Sent pt referral message., Carol Willams 10/25/2024 02:10:14 PM >Patient will asked daughter Michaelle to call ENT office to schedule., Lauren Martino 10/25/2024 04:13:34 PM >Patient's daughter called us about this and P# was provided. , Pina Salamanca 11/05/2024 08:44:19 AM >Pt has appt in Sept Referral Priority Routine Referral Appointment Date 01/07/2025 Reason DM foot eval Diagnosis 1 Type 2 diabetes genna itus (E11.9) Referral Organization Third Referring Provider First Name Chen Referring Provider Last Name Flavio Referring Provider [facility] opal Referred Provider Ramandeep Gonzalez Referred Provider Specialty Podiatry Referral Priority Routine Medications Medication SIG (Take, Route, Frequency, Duration) Notes Start Date End Date Status Fluticasone Propionate 50 MCG/ACT SPRAY 1 SPRAY EN CADA [place] TODOS LOS AGUSTIN FOR 30 DAYS; Duration: 30 Not-Taking buPROPion HCl ER (Smoking Det) 150 MG 1 TABLET Orally twice a day, AM, 5 PM; Duration: 90 days Not-Taking Naproxen 500 MG 1 tablet with food or milk as needed Orally every 12 hrs; Duration: 30 days please give instructions in arabic Not-Taking Lisinopril 2.5 MG TOME UMU TABLETA TODOS LOS AGUSTIN FOR 30 DAYS Orally Once a day; Duration: 90 days Active Latex Gloves Large - as directed as directed twice a day 05/01/2021 Not-Taking metFORMIN HCl 1000 MG 1 tablet with a meal Orally Twice a day; Duration: 90 days Active traZODone HCl 100 MG 1 tablet at bedtime Orally Once a day; Duration: 30 days 11/09/2024 Active Diapers & Supplies - as directed as directed 7 times a day 05/01/2021 Not-Taking Pravastatin Sodium 20 MG TOME UMU TABLETA TOS PANCHO AGUSTIN FOR 30 DAYS Orally daily; Duration: 90 days Active Bed Size Underpads as directed as directed once a day 05/01/2021 Not-Taking Blood Glucose Test - 1 (one) In Vitro twice a day; Duration: 90 days whatever brand is covered by insurance needs refills please 03/21/2019 Active Misc. Devices - 30 x36 Bed mcallister prn 05/22/2021 Not-Taking Glucometer twice daily 10/29/2022 Not-Ta pari traZODone HCl 50 MG 1 tablet at bedtime as needed Orally at bedtime; Duration: 90 days As needed Active Amantadine HCl 100 MG 1 capsule Orally Once a day Not-Taking Jardiance 10 MG 1 tablet Orally Once a day; Duration: 30 days 11/09/2024 Active Tamsulosin HCl 0.4 MG 1 capsule Orally Once a day; Duration: 90 days 11/10/2020 Active Trulicity 0.75 MG/0.5ML inject 0.75mg Subcutaneous once a week; Duration: 30 days 10/05/2024 Not-Taking Finasteride 5 MG TOME UMU TABLETA TOS PANCHO AGUSTIN FOR 30 DAYS; Duration: 30 Not-Taking Tamsulosin HCl 0.4 MG 1 capsule Orally Once a day; Duration: 30 days 11/09/2024 Active Immunizations Vaccine Route Administration Date Status Comme nts *Influenza-Flucelva x-Private IM Intramuscular 06/08/2023 Administered *Tdap (Adacel)-Private IM Intramuscular 06/08/2023 Administered *Tdap (Adacel)-Private IM Intramuscular 10/17/2024 Administered Influenza (split), 3 yrs and above IM Intramuscular 02/15/2005 Administered Status:Complet e ,Reason:Given or N/A Influenza, seasonal, injectable, preservative free, 3 yrs and above IM Intramuscular 04/25/2015 Administered Status:Complet e ,Reason:Given or N/A Pneumococcal conjugate PCV 7 IM Intramuscular 02/15/1998 Administered Status:Complet e ,Reason:Given or N/A Td (adult), adsorbed-Private OTH Other/Miscellaneous 01/15/1998 Administered Status:Complet e ,Reason:Given or N/A Social History Tobacco Use: Social History Observation Description Date Details (start date - stop date) Current Smoker NA - NA Sex Assigned At : Social History Observation Description Sex Assigned At Male Household Question Answer Notes Marital status: Tobacco Use/Smoking Question Answer Notes Tobacco use: current smoker patient enter ed data How often do you smoke cigarettes? every day patient entered data How many cigarettes a day do you smoke? 21-30 patient entered data Are you interested in quitting? Not ready to abby t patient entered data CAGE-AID Questionnaire (2018 Edition) Question Answer Notes Have you ever felt that you ought to cut down on your drinking or drug use? Yes patient ente red data Have people annoyed you by c riticizing your drinking or drug use? Yes patient entered data Have you ever felt bad or gu ilty about your drinking or drug use? Yes patient entered data Have you ever had a drink or used drugs first thing in the morning to steady your nerves or to get rid of a hangover? No patient entered data CAGE-AID Score 3 Interpretation Clinically Significant PRAPARE Question Answer Notes Date Completed/Updated: 10/05/2024 vasquez nt entered data What is your current housing situation? I have housing patient entered data Are you worried about losing your housing? No patient entered data What is the highest level of school that you have finished? Less than a high school degree patient entered data What is your current work situation? Otherwise unemployed but not seeking work (ex. student, retired, disabled, unpaid primary emergency care attendant) patient entered data In the past year, have you o r any family members you live with been unable to get any of the following when it was really needed? Check all that apply I do not have problems meeting my needs Has lack of transportation k ept you from medical appointments, meetings, work or from getting things needed for daily living? No How often do you see or talk to people that you care about and feel close to? (For example: talking to friends on the phone, visiting friends or family, going to sikh or club meetings) More than 5 times a week patient entered data How stressed are you? Stress is when someone feels tense, nervous, anxious, or can't sleep at night because their mind is troubled A little bit patient entered data In the past year have you sp ent more than 2 nights in a row in a nursing home, half-way, custodial center, or juvenile correctional facility? No patient entered data Are you a refugee? No patient en tered data What country are you from? Country Other than the [place] (please write in notes) patient entered data Do you feel physically and emotionally safe where you currently live? Yes patient entered data In the past year, have you b een afraid of your partner or ex-partner? No patient entered data PRAPARE Score: 9 Problems Problem Type SNOMED Code ICD Code Onset Dates Problem Status W/U Status Risk Notes Problem Tobacco user (557948818) Nicotine dependence, cigarettes, uncomplicated (F17.210) Active confirmed Problem Tobacco user (006753297) Cigarette nicotine dependence without complication (F17.210) Active confirmed Problem Hearing loss (34678371) Decreased hearing of both ears (H91.93) Active confirmed Problem Essential hypertensi on (05443184) Essential hypertension (I10) Active confirmed Problem hypercholesterolemia (disorder) (18711379) Hypercholesteremia (E78.00) Active confirmed Problem Anxiety (20088444) Anxiety (F41.9) Active confi rmed Problem Insomnia (887573353) Insomnia (G47.00) Active c onfirmed Problem Diabetic neuropathy (637401672) Diabetic neuropathy (E11.40) Active confirmed Problem Benign prostatic hyperplasia (858867715) BPH (benign prostatic hyperplasia) (N40.0) Active confirmed Problem Type 2 diabetes mellitus (90030833) Type 2 diabetes mellitus (E11.9) Active confirmed Problem Urinary incontinence (750821455) Urinary incontinence (R32) Active confirmed Problem Atherosclerotic hear t disease of [place] coronary artery without angina pectoris (424560677542253) 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) Active confirmed Vital Signs Heart Rate 71 /min 11/09/2024 occassional cecille n in Left side rib area Sasha Joyner 11/09/2024 09:53:35 AM EDT > Temperature 98.4 degrees Fahrenheit 11/09/2024 occa ssional pain in Left side rib area Broshious, Sasha 11/09/2024 09:53:35 AM EDT > Respiratory Rate 16 /min 11/09/2024 occassional pain in Left side rib area Broshious, Sasha 11/09/2024 09:53:35 AM EDT > Height-cm 172.72 cm 11/09/2024 occassional cecille n in Left side rib area Broshious, Sasha 11/09/2024 09:53:35 AM EDT > Blood pressure diastolic 55 mm Hg 11/09/2024 occ assional pain in Left side rib area Broshious, Sasha 11/09/2024 09:53:35 AM EDT > Oximetry 95 % 10/17/2024 BroTelma navas 10/17/2024 09:48:02 AM EDT > Weight-kg 54.61 kg 11/09/2024 occassional cecille n in Left side rib area Broshious, Sasha 11/09/2024 09:53:35 AM EDT > Height 68.00 in 11/09/2024 occassional cecille n in Left side rib area Broshious, Sasha 11/09/2024 09:53:35 AM EDT > Blood pressure systolic 90 mm Hg 11/09/2024 occa ssional pain in Left side rib area Broshious, Sasha 11/09/2024 09:53:35 AM EDT > Weight 120.4 lbs 11/09/2024 occassional cecille n in Left side rib area Broshious, Sasha 11/09/2024 09:53:35 AM EDT > BMI 18.3 kg/m2 11/09/2024 occassional cecille n in Left side rib area Broshious, Sasha 11/09/2024 09:53:35 AM EDT > Encounters Encounter Location Date Provider Diagnosis [facility] [address] [place] [address] 10/05/2024 Chen Flavio Essential hypertensi on I10 ; Hypercholesteremia E78.00 ; Type 2 diabetes mellitus E11.9 ; Cigarette nicotine dependence without complication F17.210 ; Anxiety F41.9 and Insomnia G47.00 [facility] [address] [facility] [place] [address] 10/17/2024 Chen Flavio Encounter for wellne ss examination Z00.00 ; Screening for diabetes mellitus Z13.1 ; Screening for colon cancer Z12.11 ; Screening for prostate cancer Z12.5 ; Encounter for HCV screening test for low risk patient Z11.59 ; Encounter for screening for cardiovascular disorders Z13.6 ; Dietary counseling Z71.3 ; Screening for lung cancer Z12.2 ; Screening for abdominal aortic aneurysm Z13.6 ; Encounter for screening for eye and ear disorders Z13.5 and Encounter for immunization Z23 [facility] [address] [place] [address] 11/09/2024 Chen Flavio Essential hypertensi on I10 ; Type 2 diabetes mellitus E11.9 ; BPH (benign prostatic hyperplasia) N40.0 ; Insomnia G47.00 and Screening for thyroid disorder Z13.[address] [address] 12/01/[address] [address] 12/01/2023 [facility] [address] [place], [place] [id number] 12/05/2023 Karen Harris [address] [address] 12/05/2023 [facility] [address] [place], [place] [id number] 12/19/2023 [facility] Type 2 diabetes genna itus E11.[address] [address] 01/25/2024 [facility] Type 2 diabetes genna itus E11.9 [facility] [address] [place], [place] [id number] 10/11/2024 Chen Flavio BPH (benign prostati c hyperplasia) N40.0 Assessments Encounter Date Diagnosis (ICD Code) Assessment Notes Treatment Notes Treatment Clinical Notes Section Notes 12/19/2023 Type 2 diabetes mellitus (ICD-10 - E11.9) 01/25/2024 Type 2 diabetes mellitus (ICD-10 - E11.9) 10/11/2024 BPH (benign prostati c hyperplasia) (ICD-10 - N40.0) 10/17/2024 Screening for diabetes mellitus (ICD-10 - Z13.1) 10/17/2024 Encounter for wellness examination (ICD-10 - Z00.00) Pt is here for wellness today. Overall health is okay. I advised to get baseline tests and pt is agreeable for that. I advised regular exercise and eating a balanced diet with focus on eating less fried and fatty foods and eating more fresh fruits and vegetable in an attempt to achieve and maintain a healthy BMI and PVU We discussed the importance of vaccination including covid shots and yearly flu shots and all questions were answered in detail today. 11/09/2024 Essential hypertension (ICD-10 - I10) Patient [...] to look for diabetic retinopathy and yearly seafood technology specialist visit and PVU Pt will f/up with repeat labs in 3 months. 10/05/2024 Essential hypertension (ICD-10 - I10) Stable on meds Patient is currently on lisinopril 2.5mg Pt was advised to take the medications daily as prescribed. Call the office if there is any side effects due to medications. Pt was advised to bring the BP log to the next appointment so we can adjust the medications as needed and PVU Life Style Modifications were discussed including: Reducing salt intake, regular exercise, reducing weight and avoiding smoking and alcohol intake. 10/05/2024 Hypercholesteremia (ICD-10 - E78.00) Stable on pravastatin. refill med today. Check lipid panel 11/09/2024 BPH (benign prostati c hyperplasia) (ICD-10 - N40.0) [facility] BPH screening toold , pt score 30 with affecting quality of life I will start pt on flomax, PSA ordered if elevated will start finaestride and refer to urology, pt is in agreement with this plan. 10/17/2024 Screening for colon cancer (ICD-10 - Z12.11) 10/17/2024 Screening for prostate cancer (ICD-10 - Z12.5) 11/09/2024 Insomnia (ICD-10 - G47.00) D/C hydroxyzine, due to anitcholinergic effect on elderly. Increase trazodone to 100mg and monitor. 10/05/2024 Type 2 diabetes mellitus (ICD-10 - E11.9) The patient is currently on metformin 1000mg bid, tolerates med well Last A1c was 7.2 A1c today is 9.5 Due to an increase in the patient's A1c, we discussed the need to initiate insulin therapy. The patient declined, as he did previously, according to a family member who accompanied him and confirmed that this is not the first time insulin has been recommended. Instead, the patient was started on Trulicity (dulaglutide) once weekly. He was educated on the benefits of the medication, including improved blood glucose control and a low risk of hypoglycemia. The patient and family were informed that the dose will be increased after 4 weeks to optimize glycemic control, if tolerated. We also discussed that if blood glucose levels remain elevated, additional therapies such as SGLT2 inhibitors may be considered in the future. The patient was provided with: Hyperglycemia protocol and educational materials Hypoglycemia protocol and education, including symptoms and when to seek emergency care The patient and family appeared to understand and agreed with the plan. I recommend home blood sugar readings to be monitored frequently (daily fasting along with random (2 hours after meals). Pt was advised to log the reading with timings and to bring it on the next visit so we can adjust the dose of medications as needed.. 10/05/2024 Cigarette nicotine dependence without complication (ICD-10 - F17.210) Patient provided with [phone] phone line. Smoking cessation was emphasized, and the patient was provided with educational materials on quitting smoking, including information about a smoking cessation program available in [facility]. 11/09/2024 Screening for thyroi d disorder (ICD-10 - Z13.29) due to recent weight loss check TSH due to smoking hx await labs of screening imaging studies as well as cologuard. 10/17/2024 Encounter for HCV screening test for low risk patient (ICD-10 - Z11.59) 10/17/2024 Encounter for screening for cardiovascular disorders (ICD-10 - Z13.6) 10/05/2024 Anxiety (ICD-10 - F41.9) The patient was advised to take hydroxyzine on an as-needed basis. Education was provided regarding the potential side effects of using hydroxyzine in combination with trazodone, including increased risk of sedation, dizziness, and impaired coordination. The patient was specifically advised not to take both medications on the same night if possible. However, if use of both is necessary, it should be done with caution and close monitoring for side effects. Both the patient and guardian voiced understanding of the risks and instructions provided. 10/05/2024 Insomnia (ICD-10 - G47.00) med refilled today 10/17/2024 Dietary counseling (ICD-10 - Z71.3) 10/17/2024 Screening for lung cancer (ICD-10 - Z12.2) 10/17/2024 Screening for abdominal aortic aneurysm (ICD-10 - Z13.6) 10/17/2024 Encounter for screening for eye and ear disorders (ICD-10 - Z13.5) 10/17/2024 Encounter for immunization (ICD-10 - Z23) Plan Of Treatment Pending Test Test Name Order Date Cologuard 10/17/2024 TSH + FREE T4 PROFILE 11/09/2024 PSA, TOTAL, 3RD GENERATION 11/09/2024 HEPATITIS C AB REFLEX QUANT 10/17/2024 CT LOW DOSE LUNG SCREENING 10/17/2024 US Abdomen AAA Screen 10/17/2024 Next Appt Details Provider Name:Abel Leigh, 02/15/2025 09:30:00 AM, [address], [place], [id number], Insurance Providers Payer Name Payer Address Payer Phone Subscriber Number Group Number Insured Name Patient Relationship to Insured Coverage Start Date Coverage End Date [employer] HMO [address] [place] [id number] Jorge VilledaBernard garay Self - patient is the insured 3 Medicaid [employer] [address] [place], [place] [id number] Jorge ChambersBernard garrido Self - patient is the insured 9 S Nominal Fee Responsibl e [address] [place] [id number] Jorge ChambersBernard garrido Self - patient is the insured 1 2 [employer] [address] [place] [address] Jorge ChambersBernard garrido Self - patient is the insured [facility] [address] [place] [address] [id number] Jorge ChambersBernard garrido Self - patient is the insured 3 Medical (General) History Medical History History ICD Code Type 2 diabetes mellitus E11.9 Hypercholesteremia E78.00 Essential hypertension I10 Other transient cerebral ischemic attack s and related syndromes G45.8 CVA (cerebral vascular accident) I63.9 Diabetic neuropathy E11.40 BPH (benign prostatic hyperplasia) N40.0 Hearing loss H91.90 Erectile dysfunction N52.9 Cardiovascular disease with arterioscler osis I25.10 Anxiety F41.9 Insomnia G47.00 Urinary incontinence R32 Surgical History Surgery Date(Month/Year) left eye surgery 06/2023
--- NOTE | 2024-11-16 08:39 | US_ITS ---
[address] [address] Patient Name: JUVENAL BROWN MRN: [id number] date: 1950 Sex: M Assigned Patient Location: CT Current Patient Location: CT Accession/Order Number: [id number] Exam Date: 11/16/2024 10:18 Report Date: 11/16/2024 10:19 At the request of: YASMIN NEW MD Procedure: US aorta Aortic ultrasound Reason for exam: Aneurysm screening. Smoker. Comparison: none Technique: Grayscale, spectral and color Doppler images of the abdominal aorta were obtained. Findings: Visualized portions of the abdominal aorta appears normal in caliber without evidence of aneurysm. Visualized portions of the common iliac arteries also appear normal in caliber. Atherosclerotic plaquing is seen. US/US aorta Impression: No ultrasound evidence of abdominal aortic aneurysm. Impression dictated by: Filiberto Nolasco Jr., D.O. 11/16/2024 10:19 AM Dictation Location: [place] [address] Electronically authenticated by: [id number] Y Date: 11/16/2024 10:19
--- NOTE | 2024-11-16 08:39 | CT_ITS ---
The [address] [address] Patient Name: JUVENAL BROWN MRN: [id number] date: 1950 Sex: M Assigned Patient Location: CT Current Patient Location: CT Accession/Order Number: [id number] Exam Date: 11/16/2024 09:16 Report Date: 11/16/2024 09:28 At the request of: YASMIN NEW MD Procedure: CT lung screening low-dose LOW-DOSE SCREENING CHEST CT WITHOUT CONTRAST COMPARISON: 12/11/2022 CLINICAL DATA: Current smoker for approximately 55 years. Spiral axial unenhanced low-dose images were obtained through the chest. Images were reviewed using both narrow and wide window settings. This CT exam was performed using one or more following dose reduction techniques: Automated exposure control, adjustment of the mA and/or kV according to patient size, or use of iterative reconstruction technique. The heart is within normal limits for size. No pericardial effusion is present. Coronary artery disease is seen. No aortic aneurysm is visualized. A small amount of plaque is visualized at the aortic arch, descending aorta and proximal great vessels. There are tiny nonpathologic mediastinal lymph nodes. There is minor bilateral gynecomastia. Degenerative changes are present the spine. Apical scarring is again noted. There is additional scarring and/or atelectasis. There is a small area of developing parenchymal change at the lingula which is also probably atelectasis. No additional consolidation, pleural effusion or pneumothorax is noted. There is similar nodularity at the left upper and right lower lobes measuring up to 8 mm. A left upper lobe calcified granuloma is noted. No new nodularity is seen. Limited imaging through the upper abdomen shows no contributory findings. CT/CT lung screening low-dose IMPRESSION: ATELECTASIS AND SCARRING. STABLE PULMONARY NODULARITY. Lung RADS category 2 - benign Twelve-month low-dose CT follow-up suggested. Impression dictated by: Shameka Deutsch M.D. 11/16/2024 9:28 AM Dictation Location: [place] [address] Electronically authenticated by: [id number] Y Date: 11/16/2024 09:28
== END 2024-11-16 08:35 | disposition home or self-care (01) ==
LOC: CT 08:34
PROVIDERS: Visit Provider Student in an Organized Health Care Education/Training Program
DX: R91.8 Other nonspecific abnormal finding of lung field (principal); Z13.6 Encounter for screening for cardiovascular disorders; Z12.2 Encounter for screening for malignant neoplasm of respiratory organs; F17.210 Nicotine dependence, cigarettes, uncomplicated
CPT/HCPCS: 71271; 76706